=== PATIENT | female | born 1995 | race Caucasian/White ===

== ENCOUNTER 2017-04-03 15:03 | Outpatient (CLI) | payer BC, OTHER ==
[2017-04-03 15:43] LABS: BILIRUBIN,URINE NEGATIVE (NEGATIVE); PH,URINE 6.5 PH (5.0-7.5)
[2017-04-03 16:01] LABS: BASOPHILS # (AUTO) 0.1 10^3/uL (0.0-0.1); BASOPHILS % (AUTO) 0.7 %; EOSINOPHILS # (AUTO) 0.2 10^3/uL (0.0-0.7); EOSINOPHILS % (AUTO) 2.1 %; HCT - HEMATOCRIT 38.1 % (37.0-47.0); HGB - HEMOGLOBIN 13.3 g/dL (12.0-16.0); LYMPHOCYTES % (AUTO) 21.3 %; MEAN CORPUSCULAR HEMOGLOBIN 29.6 pg (27.0-31.0); MEAN CORPUSCULAR HGB CONC 34.9 g/dL (32.0-36.0); MEAN CORPUSCULAR VOLUME 84.8 fL (81.0-99.0); MONOCYTES # (AUTO) 0.6 10^3/uL (0.0-1.0); MONOCYTES % (AUTO) 6.2 %; NEUTROPHILS # (AUTO) 6.6 10^3/uL (1.5-6.6); NEUTROPHILS % (AUTO) 69.7 %; RED CELL DISTRIBUTION WIDTH 13.6 % (12.0-15.0); UNCORRECTED WHITE BLOOD COUNT 9.5 x10^3/uL; WHITE BLOOD COUNT 9.5 x10^3/uL (4.8-10.8)
[2017-04-03 16:11] LABS: WBC,URINE 0-3 /HPF (0-5)
[2017-04-04 06:23] LABS: TEST RESULT REPORT
== END 2017-04-03 15:04 | disposition home or self-care (01) ==
LOC: LAB 15:03
PROVIDERS: ATTEND Registered Nurse
DX: Z36.9 Encounter for antenatal screening, unspecified (principal)
CPT/HCPCS: 36415; 81001; 81599; 85025; 86762; 86850; 86900; 86901; 87340; 87389

== ENCOUNTER 2017-05-04 07:18 | Outpatient (CLI) | payer BC, OTHER ==
--- NOTE | 2017-05-07 13:38 | Ultrasound Report ---
OB ULTRASOUND: 05/04/2017 CLINICAL INDICATION: anatomy. TECHNIQUE: Real-time scanning was performed with premium representative static images obtained. LAST MENSTRUAL PERIOD: 12/04/2016 Clinical Age: 21 weeks 4 days US Age: 21 weeks 1 day EFW Hadlock: 416 EFW% Hadlock: 32% Heart Rate: 130 bpm EDC: 09/10/2017 US EDC: 09/13/2017 BPD Hadlock: 20 weeks 5 days; Mean mm 49 HC Hadlock: 20 weeks 6 days; Mean mm 186 AC Hadlock: 21 weeks 1 day; Mean mm 160 FL Hadlock: 21 weeks 6 days; Mean mm 37 Presentation: cephalic Placental Location: anterior Cervical Length: 4.1 cm Amniotic Fluid: 12.1 cm FINDINGS: There is a single viable intrauterine gestation, in cephalic presentation. heart rate is 130 BPM. The placenta is anterior without evidence of previa. Amniotic fluid volume is subjectively normal. By size, the fetus measures 21 weeks 1 day (21 weeks 4 days by LMP). ANATOMY: The following anatomic structures were visualized and appear normal: The intracranial contents, including the ventricles and posterior fossa; the lips and orbits; the spine; the heart, including 4 chamber view and outflow tracts, and diaphragm; the abdominal contents, including the stomach, the bilateral kidneys, and urinary bladder, as well as a normal 3 vessel cord insertion; 4 limbs. No free fluid or adnexal lesion is appreciated. IMPRESSION: SINGLE VIABLE INTRAUTERINE GESTATION, WITH SIZE IN KEEPING WITH LMP DATING. NORMAL ANATOMIC SURVEY. HENRY/ TD: 05/04/2017 16:27 [facility]
== END 2017-05-04 07:19 | disposition home or self-care (01) ==
LOC: DI 07:18
PROVIDERS: ATTEND Registered Nurse
DX: Z34.82 Encounter for supervision of other normal pregnancy, second trimester (principal); Z3A.21 21 weeks gestation of pregnancy
CPT/HCPCS: 76811

== ENCOUNTER 2017-06-23 08:44 | Outpatient (CLI) | payer BC, OTHER ==
[2017-06-23 12:35] LABS: HGB - HEMOGLOBIN 12.5 g/dL (12.0-16.0); MEAN CORPUSCULAR HGB CONC 34.4 g/dL (32.0-36.0); MEAN PLATELET VOLUME 8.6 fL (7.9-10.8); RED BLOOD COUNT 4.17 10^6/uL (4.20-5.40); RED CELL DISTRIBUTION WIDTH 13.5 % (12.0-15.0); WHITE BLOOD COUNT 11.9 x10^3/uL (4.8-10.8)
== END 2017-06-23 08:45 | disposition home or self-care (01) ==
LOC: LAB.WCP 08:44
PROVIDERS: ATTEND Nurse Practitioner Obstetrics & Gynecology
DX: Z34.90 Encounter for supervision of normal pregnancy, unspecified, unspecified trimester (principal)
CPT/HCPCS: 36415; 82950; 86850

== ENCOUNTER 2017-07-29 09:58 | Outpatient (CLI) | payer OTHER ==
[2017-07-29 11:21] LABS: BASOPHILS % (AUTO) 0.4 %; EOSINOPHILS # (AUTO) 0.2 10^3/uL (0.0-0.7); EOSINOPHILS % (AUTO) 1.7 %; HGB - HEMOGLOBIN 11.4 g/dL (12.0-16.0); LYMPHOCYTES # (AUTO) 1.8 10^3/uL (1.5-3.5); LYMPHOCYTES % (AUTO) 15.6 %; MEAN CORPUSCULAR HEMOGLOBIN 29.1 pg (27.0-31.0); MEAN CORPUSCULAR VOLUME 85.5 fL (81.0-99.0); MEAN PLATELET VOLUME 8.5 fL (7.9-10.8); MONOCYTES # (AUTO) 0.7 10^3/uL (0.0-1.0); MONOCYTES % (AUTO) 6.3 %; NEUTROPHILS # (AUTO) 8.8 10^3/uL (1.5-6.6); PLT - PLATELET COUNT 251 10^3/uL (130-450); RED BLOOD COUNT 3.92 10^6/uL (4.20-5.40); RED CELL DISTRIBUTION WIDTH 13.3 % (12.0-15.0); WHITE BLOOD COUNT 11.6 x10^3/uL (4.8-10.8)
[2017-07-29 11:22] LABS: URIC ACID 3.8 mg/dL (2.6-7.2)
[2017-07-29 11:32] LABS: ALBUMIN 2.9 g/dL (3.2-5.5); ALBUMIN/GLOBULIN RATIO 0.8 (1.0-2.2); BILIRUBIN,TOTAL 0.4 mg/dL (0.2-1.0); CALCIUM 8.6 mg/dL (8.5-10.3); CREATININE 0.5 mg/dL (0.4-1.0); TOTAL PROTEIN 6.4 g/dL (6.7-8.2)
[2017-07-29 12:22] LABS: CREATININE,URINE 31.4 mg/dL; TOTAL PROTEIN,URINE TIMED < 6 mg/dL
[2017-07-29 17:50] VITALS: BP 120/75
[2017-07-30 16:59] LABS: CREATININE,URINE 95.1 mg/dL; PROTEIN/CREATININE RATIO,URINE 0.1 (<=0.2)
== END 2017-07-29 13:40 | disposition home or self-care (01) ==
LOC: WFO 09:58 → FBP 09:59 → WFO 13:40
PROVIDERS: ATTEND Nurse Practitioner Obstetrics & Gynecology
DX: O13.3 Gestational [pregnancy-induced] hypertension without significant proteinuria, third trimester (principal); Z3A.32 32 weeks gestation of pregnancy
CPT/HCPCS: 36415; 59025; 80053; 82570; 83615; 84156; 84450; 84550; 85025

== ENCOUNTER 2017-07-31 15:54 | Outpatient (CLI) | payer OTHER ==
[2017-07-31 16:31] VITALS: BP 118/79
== END 2017-07-31 17:17 | disposition home or self-care (01) ==
LOC: WFO 15:54 → FBP 15:57 → WFO 17:17
PROVIDERS: ATTEND Registered Nurse
DX: O13.3 Gestational [pregnancy-induced] hypertension without significant proteinuria, third trimester (principal); Z3A.33 33 weeks gestation of pregnancy
CPT/HCPCS: 59025

== ENCOUNTER 2017-08-11 11:15 | Outpatient (CLI) | payer OTHER ==
[2017-08-11 12:00] LABS: PROTEIN/CREATININE RATIO,URINE 0.1 (<=0.2)
[2017-08-11 12:03] LABS: ALBUMIN 3.1 g/dL (3.2-5.5); ALBUMIN/GLOBULIN RATIO 0.9 (1.0-2.2); BILIRUBIN,TOTAL 0.4 mg/dL (0.2-1.0); CALCIUM 8.8 mg/dL (8.5-10.3); CREATININE 0.5 mg/dL (0.4-1.0); TOTAL PROTEIN 6.5 g/dL (6.7-8.2); URIC ACID 3.6 mg/dL (2.6-7.2)
== END 2017-08-11 11:16 | disposition home or self-care (01) ==
LOC: LAB 11:15
PROVIDERS: ATTEND Nurse Practitioner Obstetrics & Gynecology
DX: O13.3 Gestational [pregnancy-induced] hypertension without significant proteinuria, third trimester (principal)
CPT/HCPCS: 36415; 80053; 82570; 83615; 84156; 84550

== ENCOUNTER 2017-08-11 21:58 | Outpatient (CLI) | payer OTHER ==
--- NOTE | 2017-08-12 00:46 | Ultrasound Report ---
EXAM: BIOPHYSICAL PROFILE EXAM DATE: 08/11/2017 11:56 PM. CLINICAL HISTORY: Gestational hypertension. COMPARISON: None. TECHNIQUE: Real-time sonographic evaluation of the fetus performed by the manager restaurant. Multiple repre sentative static images were saved for review. DATING: Established EGA 35 weeks 2 days with HONG 09/13/2017. GENERAL EVALUATION Meraz . Cardiac activity: 146 bpm. movement: Visualized. Presentation: Cephalic. Placenta: Anterior position. No evidence for previa or abruption. Amniotic fluid: Normal. NINFA 15.5 cm. MVP 4.5 cm. BIOPHYSICAL PROFILE Breathing = 2 Movement = 2 Tone = 2 Amniotic Fluid = 2 Total 12/23 IMPRESSION: 1. Meraz live intrauterine with gestational age 35 weeks 2 days based on established ED D. 2. Biophysical profile score 8 of 8. EVELYN Referring Provider Line: [phone] SITE ID: [id number]
[2017-08-12 00:58] VITALS: BP 120/65
== END 2017-08-12 00:50 | disposition home or self-care (01) ==
LOC: WFO 21:58 → FBP 22:00 → WFO 08-12 00:50
PROVIDERS: ATTEND Nurse Practitioner Obstetrics & Gynecology
DX: O13.3 Gestational [pregnancy-induced] hypertension without significant proteinuria, third trimester (principal); Z3A.34 34 weeks gestation of pregnancy
CPT/HCPCS: 36415; 59025; 76816; 76819; 80053; 82570; 83615; 84156; 84550

== ENCOUNTER 2017-08-18 09:22 | Outpatient (CLI) | payer OTHER ==
[2017-08-18 10:07] VITALS: BP 131/81
== END 2017-08-18 10:15 | disposition home or self-care (01) ==
LOC: WFO 09:22 → FBP 09:25 → WFO 10:15
PROVIDERS: ATTEND Nurse Practitioner Obstetrics & Gynecology
DX: O13.3 Gestational [pregnancy-induced] hypertension without significant proteinuria, third trimester (principal); Z3A.35 35 weeks gestation of pregnancy; Z36.85 Encounter for antenatal screening for Streptococcus B
CPT/HCPCS: 59025; 87081

== ENCOUNTER 2017-08-18 14:41 | Outpatient (CLI) | payer OTHER | END 2017-08-18 14:42 | disposition home or self-care (01) | LOC: LAB.R 14:41 | PROVIDERS: ATTEND Nurse Practitioner Obstetrics & Gynecology | DX: Z36.85 Encounter for antenatal screening for Streptococcus B (principal) | CPT/HCPCS: 87081 ==

== ENCOUNTER 2017-08-20 11:39 | Outpatient (CLI) | payer OTHER ==
[2017-08-20 12:11] VITALS: BP 118/74
--- NOTE | 2017-08-20 16:08 | Ultrasound Report ---
BIOPHYSICAL PROFILE: 08/20/2017 HISTORY: Gestational hypertension with proteinuria. TECHNIQUE: Real-time scanning by the public relations professional with saved static images reviewed. FINDINGS: There is normal movement, tone, breathing, and amniotic fluid volume. IMPRESSION: BIOPHYSICAL PROFILE 12/23. TD: 08/20/2017 14:40
--- NOTE | 2017-08-20 16:24 | Ultrasound Report ---
OB FOLLOWUP ULTRASOUND: 08/20/2017 HISTORY: Assess growth. Hypertension. Proteinuria. TECHNIQUE: Real-time scanning was performed with food products sales representative static images obtained. FINDINGS LAST MENSTRUAL PERIOD 12/07/2016 Clinical Age 36 weeks 4 days US Age 35 weeks 4 days EFW Hadlock 2575 grams EFW% Hadlock 18% Heart Rate 130 bpm EDC 09/13/2017 US EDC 09/20/2017 BPD Hadlock 35 weeks 5 days; Mean mm 88 HC Hadlock 36 weeks 3 days; Mean mm 322 AC Hadlock 34 weeks 1 day; Mean mm 302 FL Hadlock 36 weeks 0 days; Mean mm 70 Presentation cephalic Placental Location anterior Cervical Length -- Amniotic Fluid NINFA 17.4 cm IMPRESSION: SINGLE INTRAUTERINE GESTATION. AGE BY COMPOSITE ULTRASOUND MEASUREMENTS TODAY 35 WEEKS 4 DAYS WITH EXPECTED AGE BY FIRST ULTRASOUND 36 WEEKS 4 DAYS. ESTIMATED WEIGHT 2575 GRAMS, 18TH PERCENTILE. ANTERIOR PLACENTA. CEPHALIC PRESENTATION. NORMAL NINFA. HEART RATE 130 BEATS PER MINUTE. TD: 08/20/2017 14:22 [facility]
== END 2017-08-20 12:25 | disposition home or self-care (01) ==
LOC: WFO 11:39 → FBP 11:41 → WFO 12:25 → FBP 12:25
PROVIDERS: ATTEND Nurse Practitioner Obstetrics & Gynecology
DX: O13.3 Gestational [pregnancy-induced] hypertension without significant proteinuria, third trimester (principal); Z3A.35 35 weeks gestation of pregnancy
CPT/HCPCS: 59025; 76816; 76819

== ENCOUNTER 2017-08-25 09:29 | Outpatient (CLI) | payer OTHER ==
[2017-08-25 10:52] VITALS: BP 124/80
== END 2017-08-25 10:32 | disposition home or self-care (01) ==
LOC: WFO 09:29 → FBP 09:36 → WFO 10:32
PROVIDERS: ATTEND Nurse Practitioner Obstetrics & Gynecology
DX: O13.3 Gestational [pregnancy-induced] hypertension without significant proteinuria, third trimester (principal); Z3A.36 36 weeks gestation of pregnancy
CPT/HCPCS: 36415; 59025; 80053; 82570; 83615; 84156; 84550

== ENCOUNTER 2017-08-25 11:47 | Outpatient (CLI) | payer OTHER ==
[2017-08-25 12:36] LABS: ALBUMIN/GLOBULIN RATIO 0.8 (1.0-2.2); BILIRUBIN,TOTAL 0.4 mg/dL (0.2-1.0); CALCIUM 8.8 mg/dL (8.5-10.3); CREATININE 0.5 mg/dL (0.4-1.0); TOTAL PROTEIN 6.8 g/dL (6.7-8.2); URIC ACID 4.1 mg/dL (2.6-7.2)
[2017-08-25 13:26] LABS: CREATININE,URINE 82.9 mg/dL; PROTEIN/CREATININE RATIO,URINE 0.1 (<=0.2)
== END 2017-08-25 11:48 | disposition home or self-care (01) ==
LOC: LAB 11:47
PROVIDERS: ATTEND Nurse Practitioner Obstetrics & Gynecology
DX: O13.3 Gestational [pregnancy-induced] hypertension without significant proteinuria, third trimester (principal)
CPT/HCPCS: 36415; 80053; 82570; 83615; 84156; 84550

== ENCOUNTER 2017-08-26 08:00 | Outpatient (CLI) | payer OTHER ==
[2017-08-26 16:53] LABS: TOTAL PROTEIN 24HR,URINE 120 mg/24hr (40-150); TOTAL PROTEIN,URINE TIMED 8 mg/dL; TOTAL VOLUME 24HRS,URINE 1500 mL
== END 2017-08-26 08:01 ==
LOC: LAB.R 08:00
PROVIDERS: ATTEND Nurse Practitioner Obstetrics & Gynecology
DX: O13.3 Gestational [pregnancy-induced] hypertension without significant proteinuria, third trimester (principal)
CPT/HCPCS: 84156

== ENCOUNTER 2017-08-27 09:29 | Outpatient (CLI) | payer OTHER ==
[2017-08-27 09:42] VITALS: BP 117/70
== END 2017-08-27 10:35 | disposition home or self-care (01) ==
LOC: WFO 09:29 → FBP 09:31 → WFO 10:35
PROVIDERS: ATTEND Registered Nurse
DX: O13.3 Gestational [pregnancy-induced] hypertension without significant proteinuria, third trimester (principal); Z3A.36 36 weeks gestation of pregnancy
CPT/HCPCS: 59025

== ENCOUNTER 2017-08-28 22:00 | Inpatient (IN) | payer OTHER ==
--- NOTE | 2017-08-28 22:51 | HISTORY & PHYSICAL EXAMINATION ---
Admit History - Instructions [place]/Slash: -Left hand click circles element as positive or present. -Right hand click slashes element as negative or not present. - Visit Reason Visit Reason: Other - : 1 Parity: 0 Premature: 0 Ectopic: 0 : 0 Care: positive: [facility] Risk/History: positive: None Complications This : positive: induced HTN Smoking Status: Never smoker - Mother's Labs Mother's Blood Type: positive: AB Mother's RH: positive: Positive GBS: positive: Group B Step Negative Rubella Status: positive: Immune - Other Maternal History Other Maternal History: HPI: This 21yo at 37.0wks gestation by L=9wk U/S phoned through the answering service with complaints of significantly blurred vision since 1999 this evening. She drank water and moved around hoping for it to go away but it persisted. At that time she took her BP which was 153/98. Reports consistently taking her 200mg labetalol bid and reports she had taken her evening dose 3 hours prior. She was instructed to present to [facility]. She reports continued blurred vision including blurred peripheral vision. She reports 2/10 headache. She denies RUQ pain or increased swelling. 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 to [place] who is currently deployed. Mother lives close by and provides excellent support. Meds: PNV, Labetalol 200 mg PO bid Allergies: NKDA Physical Exam: Heart RRR w/o M/G/R Lungs CTAB Abdomen gravid, soft, nontender FHT's baseline 135, moderate variability, + accels, no decels EFW 2700g DTRs 2+, neg clonus Early labs: Blood type AB pos, antibody neg Hgb 13.3; Hct 38.1; PLT 232 Rubella immune HIV non-reactive Hep B non-reactive RPR non-reactive 28 week labs: Hgb 12.5 1 hour GTT 98 GBS neg Tdap 06/25/2017 08/12/2017 PI[facility] labs: pro/cr ratio 0.1 LDH 139 Uric acid 3.8 AST 18; ALT 15 Hgb 11.4, PLT 251 08/25/17 [facility] Labs: Pro/cr ratio: 0.1 LDH 136 Uric acid 4.1 AST 20; ALT 18 24 hour urine protein 120 Ultrasounds 05/13/2017: Single IUP, size = dating. Normal FAS. Anterior placenta , no previa. 08/11/2017 BPP 12/2308/18/2016 BPP 12/2308/21/2017 Growth U/S: Size c/w dating. Normal NINFA-17.5. EFW 2570g 18th percentile Assessment: 21yo G1P) @ 37.0wks gestation by L=9wk U/S Gestational HTN with moderate range BPs increasing in severity despite increasing labetalol dose from 100mg PO bid, to 200mg PO bid 1 week ago. GBS neg Plan: UA for evaluation of proteinuria Serial BPs with manual cuff NST upon arrival Induction of labor with cervical ripening indicated for gestational HTN - patient consented and risks vs benefits reviewed. Continuous monitoring If patient develops severe range pressure, will initiate Mg protocol and transfer care to physicians. Consulted with Dr Cheng, attending physician who agrees with plan. Meds/Allgy - Home Medications Home Medications: Ambulatory Orders Medication Instructions Recorded Confirmed Control Pills 03/27/16 diphenhydrAMINE [Benadryl] 25 mg PO ONCE 03/27/16 03/27/16 predniSONE [Prednisone] 40 mg PO DAILY #10 tablet 03/27/16 - Allergies Allergies/Adverse Reactions: Allergies Allergy/AdvReac Type Severity Reaction Status Date / Time laundry detergant Allergy Rash Uncoded 03/27/16 07:37 Physical - Abdominal Exam Vital Signs: Temp Pulse Resp BP Pulse Ox 37.0 C 90 18 120/64 100 08/28/17 22:15 08/28/17 22:15 08/28/17 22:15 08/28/17 22:20 08/28/17 22:15
[2017-08-28 22:58] LABS: BILIRUBIN,URINE NEGATIVE (NEGATIVE); GLUCOSE, URINE (UA) NEGATIVE (NEGATIVE); KETONES,URINE (UA) TRACE mg/dL (NEGATIVE); LEUKOCYTE ESTERASE, URINE NEGATIVE (NEGATIVE); NITRITE,URINE NEGATIVE (NEGATIVE); OCCULT BLOOD,URINE NEGATIVE (NEGATIVE); PROTEIN,URINE NEGATIVE (NEGATIVE); UROBILINOGEN,URINE 0.2 (NORMAL) E.U./dL (NORMAL)
[2017-08-28 22:59] LABS: CLARITY,URINE CLEAR (CLEAR)
[2017-08-28 23:04] LABS: RBC,URINE 0-5 /HPF (0-5)
[2017-08-28 23:05] LABS: BACTERIA,URINE Few /HPF (None Seen); CRYSTALS,URINE 6-10 Calcium Oxalate /LPF; MUCUS,URINE Marked Strands; SQUAMOUS EPITHELIAL CELL,UR MOD Squamous (<= Few)
[2017-08-28] MEDS ORDERED: DINOPROSTONE 10 MG SUPP VG SCH (23:28)
[2017-08-28] MEDS ORDERED: ACETAMINOPHEN 500 MG TABLET PO PRN (23:28)
[2017-08-28] MEDS ORDERED: SODIUM CHLORIDE FLUSH 0.9% 10 ML SYRINGE IVP PRN (23:28)
[2017-08-28] MEDS ORDERED: ZOLPIDEM 5 MG TABLET PO PRN (23:37)
[2017-08-29] MEDS: SODIUM CHLORIDE FLUSH 0.9% 10 ML SYRINGE IVP SCH (00:25)
[2017-08-29 00:40] LABS: BASOPHILS % (AUTO) 0.3 %; EOSINOPHILS # (AUTO) 0.2 10^3/uL (0.0-0.7); EOSINOPHILS % (AUTO) 1.6 %; HGB - HEMOGLOBIN 11.8 g/dL (12.0-16.0); LYMPHOCYTES % (AUTO) 16.5 %; MEAN CORPUSCULAR HEMOGLOBIN 29.6 pg (27.0-31.0); MEAN CORPUSCULAR HGB CONC 34.8 g/dL (32.0-36.0); MEAN CORPUSCULAR VOLUME 84.9 fL (81.0-99.0); MEAN PLATELET VOLUME 8.8 fL (7.9-10.8); MONOCYTES # (AUTO) 0.8 10^3/uL (0.0-1.0); MONOCYTES % (AUTO) 6.5 %; NEUTROPHILS % (AUTO) 75.1 %; PLT - PLATELET COUNT 233 10^3/uL (130-450); RED BLOOD COUNT 3.98 10^6/uL (4.20-5.40); RED CELL DISTRIBUTION WIDTH 13.8 % (12.0-15.0)
[2017-08-29] MEDS: LABETALOL 100 MG TABLET PO SCH ×2 (10:00→22:07)
--- NOTE | 2017-08-29 11:38 | PROVIDER PROGRESS NOTE ---
Subjective - Subjective Subjective: S: Patient doing well this morning. States she was able to get a good night's sleep. She is sitting up in the chair with her mom and friend whom are providing her with good support. She states she is starting to feel the cramping associated with abdominal tightening with the contractions appreciated on the toco. In good spirits. O: BP has remained normotensive throughout the night. Received 200mg PO labetalol dose this morning as scheduled. Will defer SVE until 1230 with cervadil is due to be removed. Contractions palpate mild every 4-5 minutes lasting 40-60 seconds. FHR baseline 130, moderate variability, + accels, no decels. A: 21yo @ 37.1wks gestation Gestational HTN GBS neg P: Continue induction of labor with cervical ripening Repeat SVE 1230 after removal of cervadil Anticipate continued cervical ripening with misoprostol q 4 hours Considering erickson bulb for cervical ripening Plan to update dr. salazar, attending physician on patient status following SVE and plan. Anticipate admission in <48 hours followed by spontaneous vaginal delivery Objective - Lab Results Fish Bones: 08/28/17 00:25 Other Labs: Lab Results x24hrs 08/28/17 08/28/17 Range/Units 22:15 00:25 WBC 12.0 H (4.8-10.8) x10^3/uL RBC 3.98 L (4.20-5.40) 10^6/uL Hgb 11.8 L (12.0-16.0) g/dL Hct 33.8 L (37.0-47.0) % MCV 84.9 (81.0-99.0) fL MCH 29.6 (27.0-31.0) pg MCHC 34.8 (32.0-36.0) g/dL RDW 13.8 (12.0-15.0) % Plt Count 233 (130-450) 10^3/uL MPV 8.8 (7.9-10.8) fL Neut # 9.0 H (1.5-6.6) 10^3/uL Lymph # 2.0 (1.5-3.5) 10^3/uL [place] # 0.8 (0.0-1.0) 10^3/uL Eos # 0.2 (0.0-0.7) 10^3/uL Baso # 0.0 (0.0-0.1) 10^3/uL Absolute Nucleated RBC 0.01 x10^3/uL Nucleated RBC % 0.0 /100WBC Urine Color YELLOW Urine Clarity CLEAR (CLEAR) Urine pH 6.0 (5.0-7.5) PH Ur Specific [place] >=1.030 H (1.002-1.030) Urine Protein NEGATIVE (NEGATIVE) mg/dL Urine Glucose (UA) NEGATIVE (NEGATIVE) mg/dL Urine Ketones TRACE (NEGATIVE) mg/dL Urine Occult Blood NEGATIVE (NEGATIVE) Urine Nitrite NEGATIVE (NEGATIVE) Urine Bilirubin NEGATIVE (NEGATIVE) Urine Urobilinogen 0.2 (NORMAL) (NORMAL) E.U./dL Ur Leukocyte Esterase NEGATIVE (NEGATIVE) Urine RBC 0-5 (0-5) /HPF Urine WBC 0-3 (0-5) /HPF Ur Squamous Epith Cells MOD Squamous H (<= Few) Urine Crystals 6-10 Calcium Oxalate /LPF Urine Bacteria Few (None Seen) /HPF Urine Mucus Marked Strands Urine Culture Comments NOT INDICATED
--- NOTE | 2017-08-29 12:43 | PROVIDER PROGRESS NOTE ---
Subjective - Subjective Subjective: S: Feeling well. Mom and friend supportive at the bedside. In good spirits. O: Normotensive. Afebrile. SVE 2-3/50/-2, vertex, mid-position, medium consistency. FHR baseline 130s, moderate variability, +accels, no decels. Contractions palpate mild every 4-5 minutes. A: 21yo @ 37.1wks gestation IOL with cervical ripening secondary to Gestational HTN GBS neg P: Cytotec 25mg q 4hrs x minimum of 2 doses continuous monitoring Serial BP monitoring Repeat SVE in 8 hours or sooner PRN. Anticipate inpatient status in less than [address] Cheng notified of patient status and agrees with plan of care. Objective - Lab Results Fish Bones: 08/28/17 00:25 Other Labs: Lab Results x24hrs 08/28/17 08/28/17 Range/Units 22:15 00:25 WBC 12.0 H (4.8-10.8) x10^3/uL RBC 3.98 L (4.20-5.40) 10^6/uL Hgb 11.8 L (12.0-16.0) g/dL Hct 33.8 L (37.0-47.0) % MCV 84.9 (81.0-99.0) fL MCH 29.6 (27.0-31.0) pg MCHC 34.8 (32.0-36.0) g/dL RDW 13.8 (12.0-15.0) % Plt Count 233 (130-450) 10^3/uL MPV 8.8 (7.9-10.8) fL Neut # 9.0 H (1.5-6.6) 10^3/uL Lymph # 2.0 (1.5-3.5) 10^3/uL [place] # 0.8 (0.0-1.0) 10^3/uL Eos # 0.2 (0.0-0.7) 10^3/uL Baso # 0.0 (0.0-0.1) 10^3/uL Absolute Nucleated RBC 0.01 x10^3/uL Nucleated RBC % 0.0 /100WBC Urine Color YELLOW Urine Clarity CLEAR (CLEAR) Urine pH 6.0 (5.0-7.5) PH Ur Specific [place] >=1.030 H (1.002-1.030) Urine Protein NEGATIVE (NEGATIVE) mg/dL Urine Glucose (UA) NEGATIVE (NEGATIVE) mg/dL Urine Ketones TRACE (NEGATIVE) mg/dL Urine Occult Blood NEGATIVE (NEGATIVE) Urine Nitrite NEGATIVE (NEGATIVE) Urine Bilirubin NEGATIVE (NEGATIVE) Urine Urobilinogen 0.2 (NORMAL) (NORMAL) E.U./dL Ur Leukocyte Esterase NEGATIVE (NEGATIVE) Urine RBC 0-5 (0-5) /HPF Urine WBC 0-3 (0-5) /HPF Ur Squamous Epith Cells MOD Squamous H (<= Few) Urine Crystals 6-10 Calcium Oxalate /LPF Urine Bacteria Few (None Seen) /HPF Urine Mucus Marked Strands Urine Culture Comments NOT INDICATED
[2017-08-29] MEDS: miSOPROStol 100 MCG TABLET BC SCH ×3 (13:54→22:07)
--- NOTE | 2017-08-29 20:30 | CONSULTATION NOTE ---
DATE OF SERVICE: 08/29/2017 Physician: Nona Cheng DO IDENTIFICATION: A 21-year-old G1, P0, with a 37-1/7 week intrauterine . EDC is 09/18/2017, changed by 9-week ultrasound. 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 Patient has had a normal up until about 07/29/2017 at 32 weeks 5 days. At that point in time, patient started having new onset gestational hypertension with blood pressures in the 140s-150s and a diastolic in the 100s. Patient had a workup for preeclampsia, which was negative. Patient was then placed on labetalol and has been most recently increasing labetalol. Most recently, patient was increased to labetalol 200 mg 1 tab p.o. b.i.d. Last night, the patient called, stating that she was having symptoms of preeclampsia, including blurred vision. A home blood pressure was 153/98. I discussed patient's case with Tasha. I agreed with Tasha that it is in patient's best interest that we proceed to delivery, given that she is 37 weeks on labetalol and her blood pressure is not under control. The patient does not make criteria for pre-eclampsia. Her cervical examination was remote from delivery. I do agree with Tasha's plan to proceed with cervical ripening with Cervidil and then with Cytotec. Should patient's clinical situation deteriorate , the obstetricians would be more than happy to take over care or continue consultation with the midwifery service. PAST MEDICAL HISTORY: None. PAST SURGICAL HISTORY: None. ALLERGIES: NO KNOWN DRUG ALLERGIES. MEDICATIONS 1. vitamins. 2. Labetalol 200 mg 1 tablet p.o. b.i.d. SOCIAL HISTORY: She denies any tobacco, alcohol or illicit drug use. Patient is to Pelon who is in the [employer] and on deployment. This is a male fetus with anticipated name of Miguel. Patient does intend to breastfeed and desires to go natural with respect to her pain management. PAST OBSTETRICAL HISTORY, CURRENT: Patient has been getting consistent care since 9 weeks' gestation. Again, this has been remarkable for new onset hypertension at 32 weeks' gestation. She has been placed on labetalol. Her preeclampsia labs are within normal limits and proteinuria has not made criteria for preeclampsia. PAST GYNECOLOGICAL HISTORY: She denies any abnormal Pap smears or sexually transmitted diseases. FAMILY HISTORY: She denies any female carcinoma. REVIEW OF SYSTEMS: Negative, unless otherwise stated. She denies any nausea, vomiting, fevers or chills. She does state the baby is moving well and is having mild contractions at this point in time. PHYSICAL EXAMINATION VITAL SIGNS: Temperature is 98.6, heart rate 90, blood pressure 117/69 and 120/ 64. GENERAL: Patient is a well-developed, well-nourished female in no apparent distress. She is alert and oriented x3. ABDOMEN: Gravid. Currently, heart tone baseline is in the 130s and 140s. There is good long-term variability in this category 1 strip. There are no decelerations. Saxton shows she is ismael irregularly about every 2-5 minutes. Cervical examination currently deferred. On 08/28/2017, labs reveal a white count of 12.0, H and H of 11.8 and 33.8, platelet count 233. Urinalysis significant only for a specific gravity of greater than or equal to 1.030. There is no proteinuria. The 08/25/2017 labs reveal potassium 3.6, creatinine 0.5, glucose 115, uric acid 4.1, AST 20, ALT 18. The 24-hour urine collection is 120 mg per 24-hour period. Urine protein to creatinine ratio 0.1. laboratories reveal that she is chlamydia and gonorrhea negative. Hepatitis B surface antigen is nonreactive, as well as HIV. She is rubella immune. GBS is negative. RPR nonreactive. AB positive. Antibody screen is negative. One-hour GTT is 98. ASSESSMENT AND PLAN 1. A 21-year-old G1, P0, with a 37-1/7 week intrauterine . 2. Worsening gestational hypertension, currently on labetalol 200 mg 1 tab p.o. b.i.d. 3. Cervix remote from delivery. 4. Reassuring and maternal status. PLAN 1. Will continue consultation with Tasha. Should the patient's clinical course deteriorate, will be happy to take over care. 2. Recommend continued surveillance of preeclampsia. 3. Agree with induction of labor at this time. 4. Recommend continuation of labetalol 200 mg 1 tab p.o. b.i.d. TD: 08/29/2017 20:29 [facility]
--- NOTE | 2017-08-29 21:09 | PROVIDER PROGRESS NOTE ---
Subjective - Subjective Subjective: S: Sitting up in chair chatting with mom and company. She is feeling cramping and abdominal tightening with contractions. In good spirits. Well supported. Feels that she will be able to sleep well tonight. O: SVE 3/50/-1, vertex, midposition, medium consistency. BOW intact. Contractions palpate mild every 3-4 minutes lasting 40-60 seconds with soft resting tone. FHR baseline 150s + accels, no decels. Remains normotensive. Received night time dose of labetalol. A: 21yo at 37.1wks gestation Inductions of labor with cervical ripening secondary to gestational HTN GBS neg Normotensive, afebrile P: Continue 25 mcg buccal cytotec q 4 hours Continuous monitoring Serial BP monitoring. Anticipate admission within 24 hours with active labor. Objective - Vital Signs/Intake & Output Intake & Output: Intake & Output 08/26/17 08/27/17 08/28/17 08/29/17 23:59 23:59 23:59 23:59 Intake Total 830 Output Total 2 Balance 828 - Lab Results Fish Bones: 08/28/17 00:25 Other Labs: Lab Results x24hrs 08/28/17 08/28/17 Range/Units 22:15 00:25 WBC 12.0 H (4.8-10.8) x10^3/uL RBC 3.98 L (4.20-5.40) 10^6/uL Hgb 11.8 L (12.0-16.0) g/dL Hct 33.8 L (37.0-47.0) % MCV 84.9 (81.0-99.0) fL MCH 29.6 (27.0-31.0) pg MCHC 34.8 (32.0-36.0) g/dL RDW 13.8 (12.0-15.0) % Plt Count 233 (130-450) 10^3/uL MPV 8.8 (7.9-10.8) fL Neut # 9.0 H (1.5-6.6) 10^3/uL Lymph # 2.0 (1.5-3.5) 10^3/uL [place] # 0.8 (0.0-1.0) 10^3/uL Eos # 0.2 (0.0-0.7) 10^3/uL Baso # 0.0 (0.0-0.1) 10^3/uL Absolute Nucleated RBC 0.01 x10^3/uL Nucleated RBC % 0.0 /100WBC Urine Color YELLOW Urine Clarity CLEAR (CLEAR) Urine pH 6.0 (5.0-7.5) PH Ur Specific [place] >=1.030 H (1.002-1.030) Urine Protein NEGATIVE (NEGATIVE) mg/dL Urine Glucose (UA) NEGATIVE (NEGATIVE) mg/dL Urine Ketones TRACE (NEGATIVE) mg/dL Urine Occult Blood NEGATIVE (NEGATIVE) Urine Nitrite NEGATIVE (NEGATIVE) Urine Bilirubin NEGATIVE (NEGATIVE) Urine Urobilinogen 0.2 (NORMAL) (NORMAL) E.U./dL Ur Leukocyte Esterase NEGATIVE (NEGATIVE) Urine RBC 0-5 (0-5) /HPF Urine WBC 0-3 (0-5) /HPF Ur Squamous Epith Cells MOD Squamous H (<= Few) Urine Crystals 6-10 Calcium Oxalate /LPF Urine Bacteria Few (None Seen) /HPF Urine Mucus Marked Strands Urine Culture Comments NOT INDICATED
[2017-08-30] MEDS: miSOPROStol 100 MCG TABLET BC SCH (01:50)
[2017-08-30] MEDS ORDERED: LACTATED RINGERS 1,000 ML IV ONE (02:37)
[2017-08-30] MEDS ORDERED: LACTATED RINGERS 1,000 ML IV SCH (03:00)
[2017-08-30] MEDS: LABETALOL 100 MG TABLET PO SCH ×2 (08:35→21:50)
--- NOTE | 2017-08-30 12:06 | PROVIDER PROGRESS NOTE ---
Subjective - Subjective Subjective: S: Sitting comfortably in the chair. Slept okay last night but was awake more than previous nights because she was slightly uncomfortable due to contractions. Mom and sister supportive at the bedside. O: Normotensive. SVE 3/75/0, midposition, soft, vertex. SROM moderate amount of clear fluid. Contractions palpate moderate every 2 minutes lasting 60 seconds with soft resting tone. FHR baseline 140, + accels, occasional variable decelerations. A: 21yo @ 37.2wks gestation Gestational HTN with cervical ripening GBS neg P: Continue active management. Allow 2 hours with continuous monitoring and then consider 1 dose of cytotec 25mg buccally vs initiating pitocin protocol. Pt in agreement with plan and denies further questions or concerns. Objective - Vital Signs/Intake & Output Intake & Output: Intake & Output 08/27/17 08/28/17 08/29/17 08/30/17 23:59 23:59 23:59 23:59 Intake Total 1310 1140 Output Total 2 750 Balance 1308 390 - Lab Results Fish Bones: 08/28/17 00:25
[2017-08-30] MEDS ORDERED: fentaNYL 100 MCG/2 ML VIAL IVP PRN (12:36)
--- NOTE | 2017-08-30 16:43 | PROVIDER PROGRESS NOTE ---
Labor Progress Note - Uterine Monitoring Uterine Monitoring Mode: positive: External toco Contraction Frequency (min/apart): 3-5 Contraction Intensity: positive: Moderate to strong Uterine Resting Tone: positive: Soft - Monitoring Monitor Mode: positive: External ultrasound Heart Rate Baseline: 130 Heart Rate Variability: positive: Moderate (6-25 bmp) Accelerations: positive: Present, 15x15 Decelerations: positive: None - Vaginal Exam Dilation (in cm): 5 Effacement (%): 100 Station: 0 Cervical Position: Midposition - Labor Progress Note Labor Progress Note/Additional Text: S: Feeling more discomfort with contractions. Noting some lower pelvic pressure. Sitting up at the bedside with mom and sister for support. Coping well with contractions and desires to get into the jacuzzi. O: Normotensive. Afebrile. SVE 5/100/0, soft, stretchy, mid-position. FHR baseline 130s, + accels, no decels. Contractions palpate moderate every 3-5 minutes. A: 21yo at 37.2wks gestation Induction of labor secondary to gestational HTN AROM x 4.5 hours P: Continue with expectant management at this time. Intermittent monitoring. Encouraged position changes.
[2017-08-30] MEDS: SODIUM CHLORIDE FLUSH 0.9% 10 ML SYRINGE IVP SCH (18:11)
[2017-08-30] MEDS ORDERED: LIDOCAINE 1% 50 ML MDV ONE (18:43)
[2017-08-30] MEDS ORDERED: OXYTOCIN/SODIUM CHLORIDE 500 ML IV ONE (18:44)
[2017-08-30] MEDS ORDERED: miSOPROStol 100 MCG TABLET ONE (19:22)
[2017-08-30] MEDS ORDERED: miSOPROStol 200 MCG TABLET ONE (19:23)
--- NOTE | 2017-08-30 19:50 | DELIVERY NOTE ---
Delivery Note - Labor Labor: positive: Augmented by ARM, Other - Delivery Method Delivery Method: positive: Spontaneous vaginal delivery - Presentation Presentation: positive: Vertex, KASHMIR - left occiput anterior - Nuchal Cord Nuchal Cord: positive: None - Amniotic Fluid Description Amniotic Fluid Description: positive: Clear - Episiotomy Type Episiotomy Type: positive: None - Laceration Laceration: positive: Labial, Perineal - Suture Suture Type: positive: Vicryl Suture Size: positive: 3-0, 4-0 - Delivery Outcome Delivery Outcome: positive: Livebirth - : positive: Placed in direct skin contact with mother, Stimulated, Warmed , [place] used [place] sex: positive: Male - Cord Cord: positive: 3 vessels - Placenta Placenta: positive: Intact, Spontaneous - Estimated Blood Loss Estimated Blood Loss (in cc): 450 - Post Delivery Events Post Delivery Events: positive: No post delivery events - Delivery Comments (Free Text/Narrative) Delivery Comments (Free Text/Narrative): Labor: THis 21yo at 37.2wks gestation presented for induction of labor on 08/28/2017 secondary to gestational hypertension despite increased dosage of labetalol to 200mg PO bid x 2 weeks. She c/o blurred vision and LANE. She was given 1 dose of cervadil in place for 12 hours followed by 25mcg misprostol q 4 hours x 4. AROM occurred at 1135 on 08/30/2017 and was noted to be a moderate amount of clear fluid. She progressed to c/c/+1 and pushing at 1838. : Normal SVB of a viable male infant. No nuchal. 's 9/9 at 1 and 5 min respectively at 1910 on 08/30/2017. The was placed on maternal abdomen, stimulated, dried and placed skin to skin. The umbilical cord was allowed to stop pulsating after which time it was doubly clamped and cut by mom of patient. Cord blood was obtained. Placenta delivered spontaneously and intact at 1915. 3VC. Pitocin was administered via IV for hemostasis. EBL 450. Uterine fundus firm and there is no excessive bleeding. The perineum, vagina, and cervix were inspected and noted to have a left labial laceration which was repaired with 4-0 vicryl on an SH needle, in addition to a mild superficial laceration at the introitus which was repaired using a 3-[address]-1 needle in usual fashion under sterile conditions. Vaginal examination following the repair was done. Tissues well approximated. Family bonding well. Both mother and baby were left in stable condition.
[2017-08-30] MEDS ORDERED: HYDROCORTISONE/PRAMOXINE 10 GM PR PRN (21:11)
[2017-08-30] MEDS ORDERED: OXYTOCIN/SODIUM CHLORIDE 250 ML IV ONE (21:11)
[2017-08-30] MEDS ORDERED: WITCH HAZEL/GLYCERIN 1 EACH MED..PAD TOP PRN (21:11)
[2017-08-30] MEDS: IBUPROFEN 800 MG TABLET PO SCH (21:50)
[2017-08-30] MEDS: DOCUSATE SODIUM 100 MG CAPSULE PO SCH (21:50)
[2017-08-31] MEDS: IBUPROFEN 800 MG TABLET PO SCH ×4 (04:07→22:42)
--- NOTE | 2017-08-31 08:29 | PROVIDER PROGRESS NOTE ---
Subjective - Subjective Subjective: S: Bonding well with baby. with little difficulty. Baby sleepy at the breast. Has been hand expressing with success. She was able to get good sleep between feedings last night. Bleeding has decreased significantly. Reports mild cramping intermittently. Pain well controlled with ibuprofen and tylenol. Perineum comfortable. O: Has remained normotensive throughout the night. Heart RRR w/o M/G/R. Lungs CTAB. Abdomen soft and nontender with fundus firm at U. Bilateral LEs no edema. A: 21yo -->P1 s/p TSVD of viable male infant at 37.2wks gestation following induction of labor secondary to gestational HTN Normotensive on 200mg PO labetalol bid P: Continue routine care and meds. Patient denies further questions or concerns at this time. Objective - Vital Signs/Intake & Output Vital Signs: Vital Signs x48h Temp Pulse Resp BP BP Pulse Ox 08/31/17 07:45 36.8 C 66 16 109/64 98 08/31/17 04:02 36.6 C 78 16 110/67 100 08/31/17 00:45 36.9 C 103 H 16 115/59 L 96 Intake & Output: Intake & Output 08/28/17 08/29/17 08/30/17 08/31/17 23:59 23:59 23:59 23:59 Intake Total 1310 2640 100 Output Total 2 0 Balance 1308 590 100 - Lab Results Fish Bones: 08/28/17 00:25
[2017-08-31] MEDS: DOCUSATE SODIUM 100 MG CAPSULE PO SCH ×2 (08:43→21:09)
[2017-08-31] MEDS: LABETALOL 100 MG TABLET PO SCH ×2 (08:43→21:09)
[2017-09-01] MEDS: LABETALOL 100 MG TABLET PO SCH ×2 (07:48→21:45)
[2017-09-01] MEDS: IBUPROFEN 800 MG TABLET PO SCH ×4 (07:48→23:01)
[2017-09-01] MEDS: DOCUSATE SODIUM 100 MG CAPSULE PO SCH ×3 (07:48→23:01)
--- NOTE | 2017-09-01 08:16 | Discharge Plan ---
Discharge Plan Disposition: 01 Home, Self Care Condition: Good Diet: Regular Activity Restrictions: pelvic rest x6 weeks Shower Restrictions: No Driving Restrictions: No Weight Bearing: Full Weight Instruction Topics: Vaginal After, Breastfeed How To, Jaundice Signs Inf , Exercises Kegel Additional Instructions or Follow Up instructions: w/ Claudine Peck CNM/ANTONIO for x1 week, with Tasha May CNM/ ANTONIO x3 weeks, with STEPAN Beckman x8 weeks No Smoking: If you smoke, Please STOP! Call for help. Follow-up with: Willis Au ARNP [Primary Care Provider] - Tasha May CNM, ARNP [Provider Admit Priv/Credential] -
--- NOTE | 2017-09-01 08:32 | DISCHARGE SUMMARY ---
"Discharge Summary Admit Date: 08/28/17 Discharge Date: 09/01/17 Discharging Provider: JAKOB Code Status: Attempt Resuscitation Condition at Discharge: Good Discharge Disposition: 01 Home, Self Care Discharge Facility Name: [facility] - DIAGNOSES Admission Diagnoses: GESTATIONAL HYPERTENSION Discharge Diagnoses with Status of Each Condition: - HPI History of Present Illness: CORA BAJWA IS A 21 Y/O WHO WAS ADMITTED FOR PREINDUCTION CERVICAL RIPENING FOR GESTATIONAL HTN @ 37 WEEKS' GESTATION. SHE RECEIVED AN OVERNIGHT DOSE OF VAGINAL CERVIDIL FOLLOWED BY BUCCAL MISOPROSTOL FOR EFFECTIVE CERVICAL RIPENING & UNDERWENT AROM FOR CAF. SHE PROGRESSED READILY TO COMPLETE DILATATION & DELIVERED A VIABLE MALE VAGINALLY W/ AN INTACT PERINEUM & NO COMPLICATIONS - CONSULTS | PROCEDURES Procedures: PREINDUCTION CERVICAL RIPENING AROM - HOSPITAL COURSE Hospital Course: , CORA IS AMBULATING & VOIDING W/O DIFFICULTY. SHE IS PASSING FLATUS & TOLERATING A REGULAR DIET. HER PAIN IS WELL-CONTROLLED W/O OPIOID ANALGESIA & SHE REPORTS MINIMAL LOCHIA RUBRA. SHE IS W/ FORMULA SUPPLEMENTATION PER THE PROGRAM SUPPORT SPECIALIST & IS UTILIZING A NIPPLE SHIELD BECAUSE SHE HAD THE IMPRESSION THAT HER NIPPLES WERE FLAT. SHE IS INTENDING TO D/C THE NIPPLE SHIELD & ATTEMPT TO GET BABY TO LATCH DIRECTLY TO HER BREASTS. SHE IS PLANNING PP DEPO PROVERA IN FEBRUARY FOR CONTRACEPTION & INTENDS 3 MONTHS OF PP LEAVE. HER MOTHER IS AVAILABLE TO ASSIST HER W/ THE . SHE IS ABLE TO FULLY ARTICULATE PP WARNING S/SX, INCLUDING PP DEPRESSION S/SX, AND PP AFTERCARE INSTRUCTIONS. SHE DENIES LANE/VISION CHANGES/ABDOMINAL PAIN. SHE IS AWARE OF PET S/SX & WILL CONTINUE ON 100MG LABETALOL PO BID & RETURN FOR BP CHECK THIS WEEK. SHE IS READY TO LEAVE THE HOSPITAL. - ALLERGIES Allergies/Adverse Reactions: Allergies Allergy/AdvReac Type Severity Reaction Status Date / Time laundry detergant Allergy Rash Uncoded 03/27/16 07:37 - MEDICATIONS Home Medications: Ambulatory Orders Medication Instructions Recorded Confirmed Labetalol [Trandate] 100 mg PO BID tablet 09/01/17 - PHYSICAL EXAM AT DISCHARGE General Appearance: positive: No acute distress, Alert Eyes Bilateral: positive: Normal inspection, PERRL, EOMI Respiratory: positive: Chest non-tender, No respiratory distress, Breath sounds nml Cardiovascular: positive: Regular rate & rhythm, No murmur, No gallop Abdomen: positive: Non-tender, No distention, Other (FFU-2) Skin: positive: Color nml, No rash, Warm, Dry Extremities: positive: Non-tender, Full ROM, Nml appearance, No pedal edema. negative: Calf tenderness Neurologic/Psychiatric: positive: Oriented x3, CN's nml (2-12), Motor nml, Sensation nml, Mood/affect nml Physical Exam Other/Comments: BREASTS B/L S, NT; NIPPLES B/L INTACT & EVERTED, COLOSTRUM READILY EXPRESSIBLE PERINEUM INTACT W/O ERYTHEMA/EDEMA/ECCHYMOSIS; MINIMAL LOCHIA RUBRA - LABS Result Diagrams: 08/28/17 00:25 - FOLLOW UP Follow Up: BRANDEN DE LA TORRE CNM THIS WEEK FOR BP CHECK, X1 WEEK FOR , X3 WEEKS FOR PP VISIT, X8 WEEKS FOR ANNUAL EXAM - TIME SPENT Time Spent in Discharge (Minutes): 30"
[2017-09-01 23:06] VITALS: BP 129/74
--- NOTE | 2017-09-01 23:26 | Labor Flowsheet ---
Labor Flowsheet Datetime Report Generated by CPN: 09/01/2017 23:26 Datetime: 09/01/2017 23:06 VITAL SIGNS NBP Sys/Jannet/Mean (mmHg): 129 : 74 : 86 Pulse: 77 LaborFlag: Labor Datetime: 09/01/2017 11:44 SpO2 (%): 100 Datetime: 08/30/2017 19:10 UTERINE ACTIVITY Monitor Mode: External Frequency (min): 2-4 Quality: Strong Duration (sec): 60 Pattern: Normal: <= 5 Contractions in 10 Minutes Resting Tone (Palpate): Relaxed FHR Baseline Rate : 125 Comments: FHR 125. decels downs into the 90s after pushing. tracing lost while pushing. ino roberts at bedside, pt pushing effectively Oxygen Amount (LPM): 10 Oxygen Method: Non-Rebreather Datetime: 08/30/2017 18:57 Pushing Position: Pushing Lithotomy Pushing Progress: Descent with Pushing Datetime: 08/30/2017 18:53 STAGE 2 Pushing: Urge to Push Datetime: 08/30/2017 18:51 COMMUNICATION Communication: Provider at Bedside Communication Comments: ino roberts cnm Datetime: 08/30/2017 18:44 Monitor Interventions for FHR: Ultrasound Adjusted Datetime: 08/30/2017 18:35 Vaginal Bleeding: Normal Show Cervix, Consistency: Soft Cervix, Position: Anterior Datetime: 08/30/2017 18:30 ASSESSMENT A Monitor Mode: External US Variability: Moderate 6-25 bpm Accelerations: 15X15 Decelerations: Variable Category: Category II VAGINAL EXAM Dilatation (cm): 10.0 Effacement (%): 100 Station: 1 Datetime: 08/30/2017 18:17 MEDICATIONS Analgesics/Sedatives: Fentanyl (mcg) @ 50 Patient Position/Activity: Right Lateral Datetime: 08/30/2017 17:54 Medication Comments: pt requesting pain medications. will plan on giving medications when pt is in bed. Datetime: 08/30/2017 17:02 Patient Care Comments: In jacuzzi tub Datetime: 08/30/2017 16:35 Exam by: ino alejandra cnm Membrane Status: Ruptured Datetime: 08/30/2017 16:14 PAIN Pain Scale: 6 Pain Assessment Comments: pt tearful. education given. ino alejandra called into evaulate Datetime: 08/30/2017 15:52 Stage of : Labor Datetime: 08/30/2017 15:47 Temperature (C): 37.0 Datetime: 08/30/2017 15:17 Comfort Measures: Rocking Chair Datetime: 08/30/2017 14:40 Respirations: 17 Temperature Route: Oral Datetime: 08/30/2017 13:39 I/O Interventions: Up to BR Datetime: 08/30/2017 13:05 Contraction Comments: up sitting in chair Datetime: 08/30/2017 12:17 Hygiene: Tonya Care; Underpad Changed; Peripad Changed; Gown Changed; Linens Changed Datetime: 08/30/2017 12:01 Monitor Interventions for UA: Winnie Adjusted Datetime: 08/30/2017 11:36 Membranes Rupture Method: Artificial Amniotic Fluid Color: Clear Amniotic Fluid Amount: Large Datetime: 08/30/2017 10:02 Pain Presence: Intermittent Pain Type: Contraction Datetime: 08/30/2017 09:15 FHR Baseline Changes: No Baseline Change Datetime: 08/30/2017 02:48 PATIENT CARE IV/Blood Work: IV Infusing per Order; New IV Bag Hung; IV Bag Number @ 1 Datetime: 08/30/2017 01:54 Cervical Ripening Agents: Cytotec @ 25 Datetime: 08/29/2017 23:48 Pain Location: Abdomen Pain Relief Measures: Comfort Measures Pain Coping: Breathing Through Contractions; Declines Medication or Epidural Datetime: 08/29/2017 19:27 Vital Sign Comments: 124/80 bp check with manual cuff Datetime: 08/29/2017 12:30 Presentation 'A': Cephalic Vaginal Exam Comments: cytotec removed
== END 2017-09-01 23:11 | disposition home or self-care (01) | DRG 775 ==
LOC: WFO 22:00 → FBP 22:01 → WFO 23:27 → FBP 23:28 → OBSVTOIN 08-30 12:10
PROVIDERS: ADMIT Nurse Practitioner Obstetrics & Gynecology; ATTEND Registered Nurse
PROC: 3E0P7VZ Introduction of Hormone into Female Reproductive, Via Natural or Artificial Opening (ICD-10-PCS; 2017-08-28)
PROC: 10E0XZZ Delivery of Products of Conception, External Approach (ICD-10-PCS; principal; 2017-08-30)
PROC: 10907ZC Drainage of Amniotic Fluid, Therapeutic from Products of Conception, Via Natural or Artificial Opening (ICD-10-PCS; 2017-08-30)
PROC: 0HQ9XZZ Repair Perineum Skin, External Approach (ICD-10-PCS; 2017-08-30)
DX: O13.4 Gestational [pregnancy-induced] hypertension without significant proteinuria, complicating childbirth (principal); O70.0 First degree perineal laceration during delivery; O76 Abnormality in fetal heart rate and rhythm complicating labor and delivery; Z37.0 Single live birth; Z3A.37 37 weeks gestation of pregnancy; Z79.899 Other long term (current) drug therapy
CPT/HCPCS: 59200; 81001; 85025; 87086; 96360; 96361; 99212

== ENCOUNTER 2017-09-07 15:24 | Outpatient (CLI) | payer OTHER ==
[2017-09-07 15:47] LABS: HGB - HEMOGLOBIN 10.4 g/dL (12.0-16.0); MEAN CORPUSCULAR HGB CONC 33.6 g/dL (32.0-36.0); MEAN CORPUSCULAR VOLUME 86.2 fL (81.0-99.0); MEAN PLATELET VOLUME 6.9 fL (7.9-10.8); RED BLOOD COUNT 3.58 10^6/uL (4.20-5.40); RED CELL DISTRIBUTION WIDTH 13.6 % (12.0-15.0); WHITE BLOOD COUNT 11.7 x10^3/uL (4.8-10.8)
[2017-09-07 15:57] LABS: ALBUMIN 3.4 g/dL (3.2-5.5); ALBUMIN/GLOBULIN RATIO 0.9 (1.0-2.2); BILIRUBIN,TOTAL 0.3 mg/dL (0.2-1.0); CALCIUM 8.8 mg/dL (8.5-10.3); CREATININE 0.6 mg/dL (0.4-1.0); TOTAL PROTEIN 7.2 g/dL (6.7-8.2); URIC ACID 4.6 mg/dL (2.6-7.2)
== END 2017-09-07 15:25 | disposition home or self-care (01) ==
LOC: LAB 15:24
PROVIDERS: ATTEND Nurse Practitioner Obstetrics & Gynecology
DX: R10.30 Lower abdominal pain, unspecified (principal)
CPT/HCPCS: 80053; 83615; 84550

== ENCOUNTER 2017-09-07 22:05 | Outpatient (CLI) | payer OTHER ==
--- NOTE | 2017-09-07 23:38 | Ultrasound Report ---
EXAM: PELVIS ULTRASOUND, LIMITED EXAM DATE: 09/07/2017 10:25 PM. CLINICAL HISTORY: LOWER ABDOMINAL PAIN, UNSPECIFIED. COMPARISON: None. TECHNIQUE: Real-time scanning was performed with static images obtained. FINDINGS: Focused evaluation of the left inguinal region demonstrates no evidence of mass, lymphadeno nataly or hernia. The left ovary is visualized measuring 2.6 x 1.7 x 1.7 cm and is normal in appearanc e. IMPRESSION: No sonographic left groin abnormality. [facility] Referring Provider Line: [phone] SITE ID: [id number]
--- NOTE | 2017-09-07 23:38 | Ultrasound Preliminary Report ---
Exam: US ABDOMEN LIMITED IMPRESSION: No sonographic left groin abnormality. [facility] SITE ID: [id number]
== END 2017-09-07 22:06 | disposition home or self-care (01) ==
LOC: DI 22:05
PROVIDERS: ATTEND Nurse Practitioner Obstetrics & Gynecology
DX: R10.30 Lower abdominal pain, unspecified (principal)
CPT/HCPCS: 36415; 76705; 80053; 83615; 84550

== ENCOUNTER 2018-09-07 08:00 | Outpatient (CLI) | payer OTHER ==
[2018-09-08 15:45] LABS: MUDS CUTOFF CONCENTRATIONS CUTOFF CONC BELOW:
[2018-09-08 16:01] LABS: AMPHETAMINE SCREEN,URINE NEGATIVE (NEGATIVE); BENZODIAZEPINES SCREEN, URINE NEGATIVE (NEGATIVE); COCAINE SCREEN URINE NEGATIVE (NEGATIVE); METHADONE SCREEN, URINE NEGATIVE (NEGATIVE); METHAMPHETAMINES SCREEN, URINE NEGATIVE (NEGATIVE); OPIATE SCREEN, URINE NEGATIVE (NEGATIVE); OXYCODONE SCREEN, URINE NEGATIVE (NEGATIVE); PROPOXYPHENE SCREEN, URINE NEGATIVE (NEGATIVE); TRICYCLIC ANTIDEPRESSANT,URINE NEGATIVE (NEGATIVE)
== END 2018-09-07 23:59 | disposition home or self-care (01) ==
LOC: LAB.R 08:00
PROVIDERS: ATTEND Nurse Practitioner Obstetrics & Gynecology
DX: Z36.89 Encounter for other specified antenatal screening (principal)
CPT/HCPCS: 80306; 87491; 87591

== ENCOUNTER 2018-09-08 22:18 | Outpatient (CLI) | payer OTHER ==
--- NOTE | 2018-09-08 23:55 | Ultrasound Report ---
Reason: ENCOUNTER FOR TEST, RESULT POSITIVE Procedure Date: 09/08/2018 Accession Number: [id number] / [id number] Procedure: US - OB First Trimester CPT Code: FULL RESULT: EXAM: FIRST TRIMESTER OBSTETRIC ULTRASOUND (Less than 11 weeks) EXAM DATE: 09/08/2018 11:21 PM. CLINICAL HISTORY: ENCOUNTER FOR TEST, RESULT POSITIVE. LMP: 06/17/2018. COMPARISONS: None. TECHNIQUE: Transabdominal ultrasound examination with static image documentation. CLINICAL DATES: EGA 11 weeks 6 days with HONG 03/24/2019 based on LMP. ASSESSMENT: Gestational Sac: Single intrauterine. Embryo: CRL (crown-rump length) 43.1 mm = 11 weeks 1 day. Cardiac activity: 171 beats per minute. Amniotic fluid: Not accurately assessed at this gestational age. Early placenta: Anterior. Other: No perigestational fluid collection demonstrated. MATERNAL STRUCTURES: Uterus: Anteverted. Unremarkable. Cervix: Closed. Right Ovary/Adnexa: The ovary measures 2.5 x 1.6 x 1.5 cm, volume 3 cc. Unremarkable. Left Ovary/Adnexa: The ovary measures 2.7 x 2.1 x 1.7 cm, volume 5 cc. Unremarkable. Free Fluid: None. Other: None. IMPRESSION: 1. Single viable intrauterine at EGA 11 weeks 1 day with HONG 03/29/2019 based on crown-rump length, which is concordant with clinical dates. 2. Assigned dating is HONG 03/24/2019 based on LMP. EVELYN
== END 2018-09-08 22:19 | disposition home or self-care (01) ==
LOC: DI 22:18
PROVIDERS: ATTEND Registered Nurse
DX: Z32.01 Encounter for pregnancy test, result positive (principal)
CPT/HCPCS: 76801

== ENCOUNTER 2018-10-06 08:00 | Outpatient (CLI) | payer OTHER ==
[2018-10-06 19:55] LABS: BASOPHILS % (AUTO) 0.5 %; EOSINOPHILS # (AUTO) 0.1 10^3/uL (0.0-0.7); EOSINOPHILS % (AUTO) 2.2 %; HGB - HEMOGLOBIN 11.9 g/dL (12.0-16.0); LYMPHOCYTES # (AUTO) 1.2 10^3/uL (1.5-3.5); LYMPHOCYTES % (AUTO) 20.6 %; MEAN CORPUSCULAR HGB CONC 32.9 g/dL (32.0-36.0); MEAN CORPUSCULAR VOLUME 82.1 fL (81.0-99.0); MEAN PLATELET VOLUME 8.5 fL (7.9-10.8); MONOCYTES # (AUTO) 0.4 10^3/uL (0.0-1.0); MONOCYTES % (AUTO) 6.4 %; NEUTROPHILS # (AUTO) 4.2 10^3/uL (1.5-6.6); NEUTROPHILS % (AUTO) 70.3 %; PLT - PLATELET COUNT 243 10^3/uL (130-450); RED BLOOD COUNT 4.41 10^6/uL (4.20-5.40); RED CELL DISTRIBUTION WIDTH 15.2 % (12.0-15.0); WHITE BLOOD COUNT 5.9 x10^3/uL (4.8-10.8)
[2018-10-06 19:57] LABS: BILIRUBIN,URINE NEGATIVE (NEGATIVE); GLUCOSE, URINE (UA) NEGATIVE (NEGATIVE); KETONES,URINE (UA) 15 mg/dL (NEGATIVE); LEUKOCYTE ESTERASE, URINE NEGATIVE (NEGATIVE); NITRITE,URINE NEGATIVE (NEGATIVE); OCCULT BLOOD,URINE NEGATIVE (NEGATIVE); PROTEIN,URINE NEGATIVE (NEGATIVE); UROBILINOGEN,URINE 0.2 (NORMAL) E.U./dL (NORMAL)
[2018-10-06 20:07] LABS: AMORPHOUS SEDIMENT,UR Marked /LPF; BACTERIA,URINE None Seen /HPF (None Seen); CLARITY,URINE CLOUDY (CLEAR); RBC,URINE None Seen /HPF (0-5); SQUAMOUS EPITHELIAL CELL,UR RARE Squamous (<= Few)
[2018-10-06 20:17] LABS: HB2 TOTAL 12.6 g/dL; HEMOGLOBIN A1C 0.46 g/dL; HEMOGLOBIN A1C % 5.5 % (4.6-6.2)
[2018-10-06 20:22] LABS: ALBUMIN 3.6 g/dL (3.2-5.5); ALBUMIN/GLOBULIN RATIO 1.1 (1.0-2.2); BILIRUBIN,TOTAL 0.4 mg/dL (0.2-1.0); CALCIUM 8.9 mg/dL (8.5-10.3); CREATININE 0.5 mg/dL (0.4-1.0); TOTAL PROTEIN 6.8 g/dL (6.7-8.2); URIC ACID 3.1 mg/dL (2.6-7.2)
[2018-10-06 20:28] LABS: CREATININE,URINE 289.5 mg/dL; PROTEIN/CREATININE RATIO,URINE 0.1 (<=0.2)
[2018-10-08 09:56] LABS: HEPATITIS C ANTIBODY NON-REACTIVE (NON-REACTIVE)
[2018-10-08 10:26] LABS: HEPATITIS B SURFACE ANTIGEN NON-REACTIVE (NON-REACTIVE)
[2018-10-08 12:56] LABS: HIV AG/AB 4TH GEN NON-REACTIVE (NON-REACTIVE)
== END 2018-10-06 08:01 | disposition home or self-care (01) ==
LOC: LAB.WCP 08:00
PROVIDERS: ATTEND Nurse Practitioner Obstetrics & Gynecology
DX: O13.9 Gestational [pregnancy-induced] hypertension without significant proteinuria, unspecified trimester (principal); Z36.89 Encounter for other specified antenatal screening; O99.210 Obesity complicating pregnancy, unspecified trimester
CPT/HCPCS: 36415; 80053; 81001; 81599; 82570; 82950; 83036; 83615; 84156; 84550; 85025; 86592; 86762; 86803; 86850; 86900; 86901; 87086; 87340; 87389

== ENCOUNTER 2018-11-05 07:14 | Outpatient (CLI) | payer OTHER ==
--- NOTE | 2018-11-08 16:29 | Ultrasound Report ---
Reason: SUPERVISION OF Procedure Date: 11/05/2018 Accession Number: [id number] / [id number] Procedure: US - OB Detailed Eval CPT Code: FULL RESULT: EXAM: COMPLETE OBSTETRICAL ULTRASOUND EXAM DATE: 11/05/2018 09:11 AM. CLINICAL HISTORY: anatomic survey. COMPARISON: OB FIRST TRIMESTER 09/08/2018 10:34 PM. TECHNIQUE: Real-time sonographic evaluation of the fetus performed by the staffing operations manager. Multiple open claims representative static images were saved for review. DATING: Established EGA 20 weeks 1 day with HONG 03/24/2019 based on working due date. EGA 19 weeks 2 days with HONG 03/30/2019 based on the current ultrasound. GENERAL EVALUATION Meraz . Cardiac activity: 152 bpm. movement: Visualized. Presentation: Cephalic. Placenta: Anterior position. No evidence for previa. Umbilical cord: 3 vessel cord. Central placental cord origin. Amniotic fluid: Subjectively normal. MVP 3.6 cm and NINFA 12.5 cm. BIOMETRY Bi-Parietal Diameter (BPD): 4.4 cm, 19 weeks 1 day Head Circumference (HC): 16.6 cm, 19 weeks 2 days Abdominal Circumference (AC): 13.6 cm, 19 weeks 0 days Femur Length (FL): 3.1 cm, 19 weeks 5 days Estimated Weight: 289 grams, 13th percentile for 20 weeks 1 day. ANATOMY The intracranial structures, profile, face/nose/lips, spine, 4 chamber heart and outflow tracts, stomach, abdominal wall and cord insertion, diaphragm, kidneys, bladder, and extremities were visualized and demonstrate no abnormality. MATERNAL STRUCTURES Uterus: Unremarkable. Cervix: Long and closed. Transabdominal length 4.2 cm. Right ovary/adnexa: Unremarkable. Left ovary/adnexa: Unremarkable. Free fluid: None. IMPRESSION: 1. Meraz live intrauterine with gestational age 20 weeks 1 day based on working due date. 2. Estimated weight is at the 13th percentile for assigned dating. 3. Normal anatomic survey. No anatomic abnormalities are detected at this time. [facility]
== END 2018-11-05 07:15 | disposition home or self-care (01) ==
LOC: DI 07:14
PROVIDERS: ATTEND Registered Nurse
DX: Z34.90 Encounter for supervision of normal pregnancy, unspecified, unspecified trimester (principal)
CPT/HCPCS: 76811

== ENCOUNTER 2018-12-27 11:36 | Outpatient (CLI) | payer OTHER ==
[2018-12-27 18:43] LABS: HGB - HEMOGLOBIN 10.8 g/dL (12.0-16.0); MEAN CORPUSCULAR HGB CONC 31.1 g/dL (32.0-36.0); MEAN CORPUSCULAR VOLUME 86.8 fL (81.0-99.0); MEAN PLATELET VOLUME 10.3 fL (7.9-10.8); RED CELL DISTRIBUTION WIDTH 14.6 % (12.0-15.0); WHITE BLOOD COUNT 11.2 x10^3/uL (4.8-10.8)
== END 2018-12-27 23:59 | disposition home or self-care (01) ==
LOC: LAB.WCP 11:36
PROVIDERS: ATTEND Nurse Practitioner Obstetrics & Gynecology
DX: Z36.89 Encounter for other specified antenatal screening (principal)
CPT/HCPCS: 36415; 82950; 85027; 86850

== ENCOUNTER 2019-01-28 09:21 | Outpatient (CLI) | payer OTHER | END 2019-01-28 23:59 | disposition home or self-care (01) | LOC: LAB.R 09:21 | PROVIDERS: ATTEND Obstetrics & Gynecology | DX: Z36.89 Encounter for other specified antenatal screening (principal) | CPT/HCPCS: 82731 ==

== ENCOUNTER 2019-02-18 11:10 | Outpatient (CLI) | payer OTHER ==
[2019-02-18 11:51] VITALS: BP 135/98
[2019-02-18] MEDS ORDERED: BETAMETHASONE 30 MG/5 ML VIAL IM ONE ×2 (12:54→13:11)
[2019-02-18 13:29] LABS: BASOPHILS % (AUTO) 0.4 %; EOSINOPHILS # (AUTO) 0.1 10^3/uL (0.0-0.7); EOSINOPHILS % (AUTO) 1.2 %; HGB - HEMOGLOBIN 11.4 g/dL (12.0-16.0); LYMPHOCYTES # (AUTO) 1.6 10^3/uL (1.5-3.5); LYMPHOCYTES % (AUTO) 15.5 %; MEAN CORPUSCULAR HGB CONC 32.4 g/dL (32.0-36.0); MEAN CORPUSCULAR VOLUME 83.4 fL (81.0-99.0); MEAN PLATELET VOLUME 10.7 fL (7.9-10.8); MONOCYTES # (AUTO) 0.6 10^3/uL (0.0-1.0); MONOCYTES % (AUTO) 6.2 %; NEUTROPHILS # (AUTO) 7.8 10^3/uL (1.5-6.6); NEUTROPHILS % (AUTO) 76.1 %; PLT - PLATELET COUNT 242 10^3/uL (130-450); RED BLOOD COUNT 4.22 10^6/uL (4.20-5.40); WHITE BLOOD COUNT 10.2 x10^3/uL (4.8-10.8)
[2019-02-18 13:36] LABS: CREATININE,URINE 34.3 mg/dL; PROTEIN/CREATININE RATIO,URINE 0.4 (<=0.2)
[2019-02-18 13:44] LABS: URIC ACID 5.3 mg/dL (2.6-7.2)
[2019-02-18 13:52] LABS: CREATININE 0.6 mg/dL (0.4-1.0)
--- NOTE | 2019-03-07 20:52 | PROCEDURE REPORT ---
- HPI Diagnosis/Indication for NST: Other (23 yo at 35w1d with complicated for GHTN here for NST) Current EDU 03/24/19 Gestation 35 Weeks and 1 Days 2 Para 1 Vital Signs Heart Rate 97 02/18/19 11:20 Respiratory Rate 18 02/18/19 11:20 Blood Pressure 140/100 H 02/18/19 11:20 O2 Saturation 99 02/18/19 11:20 Temperature 99.0 F 02/18/19 11:40 Heart Rate 82 02/18/19 11:40 Respiratory Rate 16 02/18/19 11:40 Blood Pressure 135/98 H 02/18/19 11:51 O2 Saturation 99 02/18/19 11:40 - NST Procedure NST Procedure Start Date 02/18/19 Start Time 11:16 Stop Time 12:50 Vibroacoustic Stimulation Used No Patient States Movement Yes EFM 140 mod jp 15x15 accels no decels TOCO: quit BP mild range. no PIH symptoms - Results and Plan Findings/Impression: Cat I tracing BP elevated in mild range. No PIH symptoms Warning signs reviewed Discharged to home Cont routine OB care, including twice weekly NST, weekly NINFA, Q4 weeks growth us and IOL at 37 wga DOS: 02/18/19 DX: Gestational hypertension
== END 2019-02-18 13:30 | disposition home or self-care (01) ==
LOC: WFO 11:10 → FBP 11:12 → WFO 13:30
PROVIDERS: ATTEND Obstetrics & Gynecology
DX: O13.3 Gestational [pregnancy-induced] hypertension without significant proteinuria, third trimester (principal); Z3A.35 35 weeks gestation of pregnancy
CPT/HCPCS: 36415; 59025; 82565; 82570; 83615; 84156; 84450; 84550; 85025; 96372

== ENCOUNTER 2019-02-22 13:57 | Outpatient (CLI) | payer OTHER ==
[2019-02-22 15:04] LABS: BASOPHILS # (AUTO) 0.1 10^3/uL (0.0-0.1); BASOPHILS % (AUTO) 0.5 %; EOSINOPHILS # (AUTO) 0.1 10^3/uL (0.0-0.7); HGB - HEMOGLOBIN 11.7 g/dL (12.0-16.0); LYMPHOCYTES % (AUTO) 15.6 %; MEAN CORPUSCULAR HEMOGLOBIN 26.8 pg (27.0-31.0); MEAN CORPUSCULAR HGB CONC 32.2 g/dL (32.0-36.0); MEAN CORPUSCULAR VOLUME 83.1 fL (81.0-99.0); MEAN PLATELET VOLUME 10.9 fL (7.9-10.8); MONOCYTES # (AUTO) 0.7 10^3/uL (0.0-1.0); MONOCYTES % (AUTO) 5.4 %; NEUTROPHILS # (AUTO) 9.9 10^3/uL (1.5-6.6); NEUTROPHILS % (AUTO) 76.9 %; PLT - PLATELET COUNT 256 10^3/uL (130-450); RED BLOOD COUNT 4.37 10^6/uL (4.20-5.40); WHITE BLOOD COUNT 12.8 x10^3/uL (4.8-10.8)
[2019-02-22 15:11] LABS: CREATININE 0.6 mg/dL (0.4-1.0)
[2019-02-22 15:14] LABS: URIC ACID 4.3 mg/dL (2.6-7.2)
[2019-02-22 15:16] LABS: CREATININE,URINE 26.6 mg/dL; PROTEIN/CREATININE RATIO,URINE 2.4 (<=0.2)
[2019-02-22 15:50] VITALS: BP 155/104
--- NOTE | 2019-02-22 16:20 | PROCEDURE REPORT ---
- HPI Diagnosis/Indication for NST: Gestational Hypertension Current EDU 03/24/19 Gestation 35 Weeks and 5 Days 2 Para 1 Vital Signs Temperature 36.8 C 02/22/19 14:18 Heart Rate 84 02/22/19 14:18 Respiratory Rate 16 02/22/19 14:18 Blood Pressure 146/99 H 02/22/19 14:18 O2 Saturation 100 02/22/19 14:18 Temperature 36.8 C 02/22/19 14:18 Heart Rate 97 02/22/19 15:49 Respiratory Rate 16 02/22/19 14:18 Blood Pressure 155/104 H 02/22/19 15:49 O2 Saturation 100 02/22/19 14:18 - NST Procedure NST Procedure Start Date 02/22/19 Start Time 14:09 Stop Time 14:50 Vibroacoustic Stimulation Used No Patient States Movement Yes - Results and Plan Findings/Impression: There is a reactive NST. This was read on 02/22/2019. Laboratory Results - last 24 hr 02/22/19 02/22/19 02/22/19 14:54 14:54 14:54 WBC 12.8 H RBC 4.37 Hgb 11.7 L Hct 36.3 L MCV 83.1 MCH 26.8 L MCHC 32.2 RDW 14.0 Plt Count 256 MPV 10.9 H Neut # (Auto) 9.9 H Lymph # (Auto) 2.0 Woods # (Auto) 0.7 Eos # (Auto) 0.1 Baso # (Auto) 0.1 Absolute Nucleated RBC 0.00 Nucleated RBC % 0.0 Creatinine Estimated GFR (MDRD) Uric Acid 4.3 AST 15 Lactate Dehydrogenase 140 Urine Creatinine Ur Total Protein Timed Protein/Creatinin Ratio 02/22/19 02/22/19 14:54 14:54 WBC RBC Hgb Hct MCV MCH MCHC RDW Plt Count MPV Neut # (Auto) Lymph # (Auto) Woods # (Auto) Eos # (Auto) Baso # (Auto) Absolute Nucleated RBC Nucleated RBC % Creatinine 0.6 Estimated GFR (MDRD) 122 Uric Acid AST Lactate Dehydrogenase Urine Creatinine 26.6 Ur Total Protein Timed 65 Protein/Creatinin Ratio 2.4 H Impression: Gestational hypertension at 35 weeks and 5 days gestation Plan: The patient is going to be discharged home since all of her labs are within normal limits. She will return for another repeat NST on 02/24/2019.
== END 2019-02-22 16:30 | disposition home or self-care (01) ==
LOC: WFO 13:57 → FBP 13:59 → WFO 16:30
PROVIDERS: ATTEND Obstetrics & Gynecology
DX: O13.3 Gestational [pregnancy-induced] hypertension without significant proteinuria, third trimester (principal); Z3A.35 35 weeks gestation of pregnancy
CPT/HCPCS: 36415; 59025; 82565; 82570; 83615; 84156; 84450; 84550; 85025

== ENCOUNTER 2019-02-25 14:00 | Outpatient (CLI) | payer OTHER ==
[2019-02-25 16:45] VITALS: BP 146/96
[2019-02-25] MEDS ORDERED: LABETALOL 100 MG TABLET PO ONE (17:15)
--- NOTE | 2019-02-28 11:13 | PROCEDURE REPORT ---
- HPI Diagnosis/Indication for NST: Gestational Hypertension Current EDU 03/24/19 Gestation 36 Weeks and 1 Days 2 Para 1 Vital Signs Temperature 36.9 C 02/25/19 14:33 Heart Rate 100 02/25/19 14:33 Respiratory Rate 16 02/25/19 14:33 Blood Pressure 159/104 H 02/25/19 14:33 O2 Saturation 99 02/25/19 14:33 Temperature 36.9 C 02/25/19 14:33 Heart Rate 100 02/25/19 14:33 Respiratory Rate 16 02/25/19 14:33 Blood Pressure 146/96 H 02/25/19 16:45 O2 Saturation 99 02/25/19 14:33 - NST Procedure NST Procedure Start Date 02/25/19 Start Time 14:09 Stop Time 14:50 Vibroacoustic Stimulation Used No Patient States Movement Yes - Results and Plan Findings/Impression: Date of exam and date read: 02/25/2019: NST reactive, baseline 140s, moderate variability, + accels, no decels Daniel presents to [facility] for scheduled NST secondary to gestational HTN. She had an elevated protein/creatinine ratio of 2.4 (02/11- 0.1; 02/18-0.4; 02/22-2.4) She denies LANE, visual disturbances, RUQ or epigastric pain. No edema. BPs persistently 150s/100s. 100mg Labetalol administered and will initiate bid and continue to take BP daily. FINAL DIAGNOSIS: Pre-eclampsia, <37wks gestation Plan: Patient released home with handwritten BP parameters and when to return. She has emergency contact information. Rx handwritten and provided to pt for labetalol 100mg bid. Pt to return for scheduled NST 03/01/2019 or sooner PRN. IOL scheduled 03/03/2019. Pt verbalized understanding and agrees to above plan. She denies further questions or concerns at this time.
== END 2019-02-25 17:15 | disposition home or self-care (01) ==
LOC: WFO 14:00 → FBP 14:02 → WFO 17:15
PROVIDERS: ATTEND Nurse Practitioner Obstetrics & Gynecology
DX: O14.93 Unspecified pre-eclampsia, third trimester (principal); Z3A.36 36 weeks gestation of pregnancy
CPT/HCPCS: 59025; A9270

== ENCOUNTER 2019-02-28 11:21 | Inpatient (IN) | payer OTHER ==
[2019-03-02] MEDS ORDERED: ONDANSETRON 4 MG/2 ML VIAL IVP PRN (20:55)
[2019-03-02] MEDS ORDERED: SODIUM CHLORIDE FLUSH 0.9% 10 ML SYRINGE IVP PRN (20:55)
[2019-03-02] MEDS: LABETALOL 100 MG TABLET PO SCH (22:27)
[2019-03-02] MEDS: LACTATED RINGERS 1,000 ML IV SCH (23:05)
[2019-03-02 23:20] LABS: BASOPHILS # (AUTO) 0.1 10^3/uL (0.0-0.1); BASOPHILS % (AUTO) 0.4 %; EOSINOPHILS # (AUTO) 0.2 10^3/uL (0.0-0.7); EOSINOPHILS % (AUTO) 1.3 %; LYMPHOCYTES # (AUTO) 2.3 10^3/uL (1.5-3.5); LYMPHOCYTES % (AUTO) 16.8 %; MEAN CORPUSCULAR HEMOGLOBIN 26.5 pg (27.0-31.0); MEAN CORPUSCULAR HGB CONC 31.8 g/dL (32.0-36.0); MEAN CORPUSCULAR VOLUME 83.4 fL (81.0-99.0); MEAN PLATELET VOLUME 10.7 fL (7.9-10.8); MONOCYTES # (AUTO) 0.9 10^3/uL (0.0-1.0); MONOCYTES % (AUTO) 6.4 %; NEUTROPHILS % (AUTO) 74.6 %; PLT - PLATELET COUNT 272 10^3/uL (130-450); RED BLOOD COUNT 4.15 10^6/uL (4.20-5.40); RED CELL DISTRIBUTION WIDTH 15.4 % (12.0-15.0); WHITE BLOOD COUNT 13.5 x10^3/uL (4.8-10.8)
[2019-03-02 23:33] LABS: CREATININE 0.6 mg/dL (0.4-1.0)
[2019-03-02 23:49] LABS: URIC ACID 5.4 mg/dL (2.6-7.2)
[2019-03-03] MEDS: miSOPROStoL 100 MCG TABLET BC SCH ×2 (00:09→04:37)
[2019-03-03] MEDS ORDERED: SODIUM CHLORIDE FLUSH 0.9% 10 ML SYRINGE IVP SCH (01:00)
--- NOTE | 2019-03-03 07:26 | HISTORY & PHYSICAL EXAMINATION ---
Admit History - Visit Reason Visit Reason: Other - : 2 Parity: 1 Premature: 0 Ectopic: 0 : 0 Care: positive: [facility] Risk/History: positive: induced HTN Complications This : positive: induced HTN, Pre- eclampsia Smoking Status: Never smoker - Mother's Labs Mother's Blood Type: positive: AB Mother's RH: positive: Positive GBS: positive: Group B Step Negative Rubella Status: positive: Immune Meds/Allgy - Home Medications Home Medications: Ambulatory Orders Medication Instructions Recorded Confirmed Labetalol [Trandate] 100 mg PO BID tablet 09/01/17 - Allergies Allergies/Adverse Reactions: Allergies Allergy/AdvReac Type Severity Reaction Status Date / Time laundry detergant Allergy Rash Uncoded 03/27/16 07:37 Review of Systems - Constitutional Constitutional: denies: Fatigue, Fever, Chills, Malaise, Weakness - Eyes Eyes: denies: Blurred vision, Spots in vision, Dipolpia - Cardiovascular Cariovascular: denies: Chest pain, Edema, Lightheadedness - Respiratory Respiratory: denies: SOB at rest - Gastrointestinal Gastrointestinal: denies: Abdominal pain, Constipation, Diarrhea, Nausea, Vomiting - Integumentary Integumentary: denies: Rash, Pruritis - Neurological Neurological: denies: Headache, Dizziness - Psychiatric Psychiatric: denies: Depression, Anxiety Physical - Abdominal Exam Contraction Frequency (min/apart): intermittent Contraction Intensity: positive: Mild Uterine Resting Tone: positive: Soft - Monitoring Heart Rate Baseline: 140 Strip Review: positive: Category I - Presentation Presentation: positive: Vertex - Vaginal Exam Membranes: positive: Membranes intact - Speculum Exam Speculum Exam Performed: positive: No Plan for Labor - Plan For Labor I expect patient to be DC'd or transferred within 96 hours.: Yes Plan for Labor: HPI: Daniel is a 23yo @ 37.0wks gestation who presented for medical induction of labor secondary to pre-eclampsia which was diagnosed at 35wks gestation (pr/cr ratio = 2.4 02/22/2019) following a diagnosis of gestational hypertension diagnosed at 32 weeks gestation. She has had twice weekly NSTs since 34 weeks gestation. She received a single betamethasone injection at 34wks gestation. She has persistently denied LANE, visual disturbances, RUQ or epigastric pain and edema - and she denies these at present. She was started on 100mg PO labetalol bid at 36 weeks gestation. She has been taking her BPs at least 4 x per day at home and after initiating labetalol her BPs have remained 140s/90s or lower. Her is otherwise complicated by mild anemia for which she was advised to increase her intake of iron rich foods. Her admit Hgg/Hct was 11.0/34.6. She presented to [facility] 03/02/2019 for medical induction of labor with pre-induction cervical ripening and she received her first dose of 50mcg BC misoprostol on 03/03/2019 at approximately 0001. SVE /-3, posterior, vertex, with intact membranes. Throughout the night FHR have been Category II with FHR baseline 145s, moderate variability, + accels, with intermittent variable decelerations and brief periods of recurrent variable decelerations with occasional late decelerations. Patient was given a 750mL bolus of IV fluids, O2 administered via nonrebreather mask, and patient was rotated with frequent position changes. For the past hour the FHR has remained Category I. Dating criteria: LMP: 06/17/2018 Initial Ultrasound: Serial Exams: Agree OB History: G1: 08/30/2018, , 37.0wks gestation IOL secondary to gestational HTN G2: current; pre-eclampsia without severe features PMHx: Gestational HTN Surgical Hx: None Social Hx: Never smoker, no ETOH or IVDA, works at [employer], [place] Family Hx: no significant labs: Hgb 11.0 Hct 34.6 PLT 272 AB+, antibody neg Rubella immune HIV neg RPR neg Hep B neg Hep C neg Hgb A1C 5.5 GC/CT neg 1 hour GTT 137 GBS neg Tdap 01/12/2019 Physical Exam: Normocephalic, atraumatic Heart RRR w/o M/G/R Lungs CTAB Abdomen gravid, soft, nontender SVE - deferred at this time Bilateral LE's no edema Mood is good Assessment: Preeclampsia without severe features - currently on 100mg PO labetolol bid with stable BPs Pre-induction cervical ripening with misoprostol s/p 2 doses FHR Category I Plan: Continuous monitoring Repeat SVE prior to next dose of misoprostol - consider Pitocin with favorable cervix Consulted with solution coordinator physician who is in agree with above plan Anticipate spontaneous vaginal delivery
--- NOTE | 2019-03-03 08:34 | PROVIDER PROGRESS NOTE ---
Labor Progress Note - Uterine Monitoring Uterine Monitoring Mode: positive: External toco Contraction Frequency (min/apart): 2-6 Contraction Intensity: positive: Mild Uterine Resting Tone: positive: Soft - Monitoring Monitor Mode: positive: External ultrasound Heart Rate Baseline: 145 Heart Rate Variability: positive: Moderate (6-25 bmp) Accelerations: positive: Present, 15x15 Decelerations: positive: None Strip Review: positive: Category I - Vaginal Exam Dilation (in cm): 2 Effacement (%): 75 Station: -1 Cervical Position: Midposition - Labor Progress Note Labor Progress Note/Additional Text: S: Sitting up in bed and not feeling her contractions. supportive at the bedside. She is feeling well and ready to have a baby. She denies LANE, visual disturbances, RUQ or epigastric pain, no edema. O: BP 140s-150s/80s-90s FHR baseline 140, moderate variability, + accels, no decels Contractions palpate mild every 2-6 minutes with soft resting tone A: 23yo @ 37.0wks gestation Pre-eclampsia without severe features FHR Category I P: Initiate pitocin with titration per protocol Continuous monitoring Repeat SVE in 4 hours or sooner PRN. Anticipate spontaneous vaginal delivery.
[2019-03-03] MEDS: OXYTOCIN/DEXTROSE 5 % 30 UNIT/500 ML BAG IV SCH (09:08)
[2019-03-03] MEDS: LABETALOL 100 MG TABLET PO SCH ×2 (09:08→20:30)
--- NOTE | 2019-03-03 09:34 | CONSULTATION NOTE ---
DATE OF SERVICE: 03/03/2019 Physician: Morgan Mendoza MD IDENTIFICATION: The patient is a 22-year-old 2, para 1 female. She has an EDC of 03/24/2019 . This makes her 37 weeks today. CHIEF COMPLAINT: Preeclampsia. HISTORY OF PRESENT ILLNESS: Patient started her OB care at 11 weeks EGA. She developed difficulty w ith gestational hypertension during the , requiring the use of labetalol. She is currently taking 100 mg p.o. b.i.d. She has a history of having gestational hypertension with her last pregnan cy without proteinuria. During that , she was put on labetalol 200 mg. This has been significant in that she developed a protein creatinine ratio of 2. She has had normal labs. Jaden castellanos initiated OB care at 11 weeks EGA. Her labs showed her to be AB positive. She is rubella immune. Her 50 gram Glucola was 137. Her hemoglobin A1c was 5.5. PAST MEDICAL HISTORY: Positive for gestational hypertension with her last ; however, she di d not have chronic hypertension. PAST SURGICAL HISTORY: None. ALLERGIES: NONE KNOWN. CURRENT MEDICATIONS 1. vitamins. 2. Labetalol 100 mg p.o. b.i.d. HABITS: Patient denies use of alcohol, tobacco or street or addictive drugs. PHYSICAL EXAMINATION GENERAL: Patient is a well-developed, well-nourished female. She is in no acute distress at this ti me. VITAL SIGNS: Blood pressure 140s/90s. HEENT: Pupils are equal, round. Extraocular muscles intact. Thyroid is not palpably enlarged. HEART: Regular rate and rhythm without murmurs. LUNGS: Lung nath are clear without rales or wheezes. BACK: No spinal or CVA tenderness noted. ABDOMEN: Gravid roughly 37 cm, nontender. Cervical examination was performed by Tasha May. DTRs are 3+ with a single beat of clonus at this time. She does show swelling in both upper and lower ext remities. IMPRESSION 1. A 23-year-old G2, P1 female, 37 weeks. 2. Preeclampsia. PLAN: At this particular time, we will proceed on with induction. We will manage her blood pressure with labetalol. 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 At that point, we will start james gamble on her. When she becomes able to be ruptured, we will rupture. Her strip has shown some evidence of decelerations, we will try and postpone rupture until later as this will probably cushion the cord . TD: 03/03/2019 08:59
[2019-03-03 10:03] LABS: CREATININE,URINE 31.9 mg/dL; PROTEIN/CREATININE RATIO,URINE 3.1 (<=0.2)
--- NOTE | 2019-03-03 12:51 | PROVIDER PROGRESS NOTE ---
Labor Progress Note - Uterine Monitoring Uterine Monitoring Mode: positive: External toco Contraction Frequency (min/apart): 2-6 Contraction Intensity: positive: Moderate Uterine Resting Tone: positive: Soft - Monitoring Monitor Mode: positive: External ultrasound Heart Rate Baseline: 130 Heart Rate Variability: positive: Moderate (6-25 bmp) Accelerations: positive: Present, 15x15 Decelerations: positive: Late, Variable, Intermittent (<50% x20 min) Strip Review: positive: Category I - Vaginal Exam Dilation (in cm): 3 Effacement (%): 75 Station: -1 Cervical Position: Midposition - Labor Progress Note Labor Progress Note/Additional Text: S: Patient comfortable in bed and she is barely feeling contractions rating them 1/10 on a pain scale. Her family is supportive at the bedside. We reviewed possibility of a delivery secondary to recurrent decelerations with onset of consistent contractions. Her mood is good and she is feeling. O: BPs 140s/90s. FHR baseline 130s, moderate variability, + accels, intermittent variable decelerations which have resolved since shutting of pitocin. AROM moderate amount of clear fluid @ 1235. A: 23yo @ 37.0wks gestation Pre-eclampsia Induction of labor secondary to pre-eclampsia P: Continue expectant management x 4 hours before initiation of pitocin again. Continuous monitoring Reviewed patient status and plan of care with business process consultant physician who is in agreement with above plan. Reviewed with patient, family at the bedside, and labor and delivery RNs who verbalized understanding and agree with above plan. They deny further questions or concerns at this time. Reevaluate in 4 hours or sooner PRN.
[2019-03-03] MEDS: LACTATED RINGERS 1,000 ML IV SCH (13:20)
--- NOTE | 2019-03-03 14:33 | ANESTHESIA ---
Pre-Anesthesia VS, & Labs - Diagnosis Non-reassuring monitoring, far from delivery. intolerance of labor - Procedure primary c/s Height 5 ft 4 in Weight (kg) 97.069 kg - NPO Last Food Intake: 829 - Is Patient ?: Yes - Lab Results Current Lab Results: Laboratory Tests 03/02/19 23:05: Creatinine 0.6, Estimated GFR (MDRD) 122, ALT 17 03/02/19 23:05: Uric Acid 5.4, AST 20 03/02/19 23:05: WBC 13.5 H, RBC 4.15 L, Hgb 11.0 L, Hct 34.6 L, MCV 83.4, MCH 26.5 L, MCHC 31.8 L, RDW 15.4 H, Plt Count 272, MPV 10.7, Neut # (Auto) 10.0 H, Lymph # (Auto) 2.3, [place] # (Auto) 0.9, Eos # (Auto) 0.2, Baso # (Auto) 0.1, Absolute Nucleated RBC 0.00, Nucleated RBC % 0.0 03/02/19 23:05: Lactate Dehydrogenase 144 Fish Bones: 03/02/19 23:05 03/02/19 23:05 Home Medications and Allergies Active Medications Lactated Ringer's (Lr) 1,000 mls @ 100 mls/hr IV .Q10H JANI Last Admin: 03/03/19 13:20 Dose: 100 mls/hr OXYTOCIN/DEXTROSE 5 % (Pitocin/Dextrose 5%) 30 unit in 500 mls @ 1 mls/hr IV TITR JANI; Protocol Last Admin: 03/03/19 09:08 Dose: 1 milliunit/min, 1 mls/hr Labetalol HCl (Trandate) 100 mg PO BID JANI Last Admin: 03/03/19 09:08 Dose: 100 mg Misoprostol (Cytotec) 50 mcg BC Q4HR JANI Last Admin: 03/03/19 04:37 Dose: 50 mcg Ondansetron HCl (Zofran Inj) 4 mg IVP Q4HR PRN PRN Reason: Nausea / Vomiting Sodium Chloride (Normal Saline Flush 0.9%) 10 ml IVP 0100,0900,1700 JANI Sodium Chloride (Normal Saline Flush 0.9%) 10 ml IVP PRN PRN PRN Reason: NEEDED PER PROVIDER ORDERS Last Admin: 03/02/19 23:20 Dose: 10 ml Allergies/Adverse Reactions: Allergies Allergy/AdvReac Type Severity Reaction Status Date / Time laundry detergant Allergy Rash Uncoded 03/27/16 07:37 Anes History & Medical History - Medical History Cardiovascular: reports: Hypertension (Gestational hypertension, pre-eclampsia without severe features) Pulmonary: reports: None Gastrointestinal: reports: None Urinary: reports: None Neuro: reports: None Musculoskeletal: reports: None Endocrine/Autoimmune: reports: None Blood Disorders: reports: None Skin: reports: None Smoking Status: Never smoker Psychosocial: reports: No issues indicated - Obstetrical History : 2 Parity: 1 Events: positive: induced HTN Complications: positive: induced HTN, Pre-eclampsia Exam General: Alert, Oriented x3, Cooperative, No acute distress Dental: WNL Mouth Openin Fingerbreadth Neck Mobility: Normal Mallampati classification: II Thyromental Distance: greater than 6 cm Respiratory: Lungs clear, Normal breath sounds, No respiratory distress, No accessory muscle use Cardiovascular: Regular rate, Normal S1, Normal S2, No murmurs Mental/Cognitive Status: Alert/Oriented X3, Normal for patient Plan Anesthesia Type: Spinal Consent for Procedure(s) Verified and Reviewed: Yes Code Status: Attempt Resuscitation ASA classification: 2-Mild systemic disease Is this case an emergency?: Yes
[2019-03-03] MEDS ORDERED: CITRIC ACID/SODIUM CITRATE 15 ML UDC PO ONE ×2 (14:37→14:47)
--- NOTE | 2019-03-03 14:38 | PROVIDER PROGRESS NOTE ---
Labor Progress Note - Uterine Monitoring Uterine Monitoring Mode: positive: External toco Contraction Frequency (min/apart): 3-5 Contraction Intensity: positive: Moderate Uterine Resting Tone: positive: Soft - Monitoring Monitor Mode: positive: External ultrasound Heart Rate Baseline: 130 Heart Rate Variability: positive: Moderate (6-25 bmp) Accelerations: positive: Present, 15x15 Decelerations: positive: Late, Variable, Recurrent (>50% x20 min) Strip Review: positive: Category II - Labor Progress Note Labor Progress Note/Additional Text: S: Patient in bed after being placed in a hands and knees position. She is starting to feel her contractions but is able to talk through them and cope easily. She does not feel she is in any kind of active labor. We have discussed that her baby is not tolerating her contractions well. and mother supportive at the bedside. O: FHR basline 130s, moderate variability, + accels, recurrent variable decelerations and intermittent late decelerations. Contractions palpate moderate every 3-5 minutes with soft resting tone. BP have remained stable on 100mg labetalol bid A: 23yo @ 39.0wks gestation Pre-eclampsia without severe features FHR Category II P: Dr Mendoza notified of persistent Category II FHR tracing isolated from active labor and the decision is made to move to a delivery. OR team, anesthesia, and director of consumer affairs supervisor hairspring fabrication notified. Care handed to Dr. Mendoza, director of consumer affairs physician.
[2019-03-03] MEDS ORDERED: ceFAZolin 2 GM in SODIUM CHLORIDE 0.9% 100ML 100 ML IV ONE (14:41)
[2019-03-03] MEDS ORDERED: ceFAZolin 1 GM VIAL ONE (14:44)
[2019-03-03] MEDS ORDERED: MORPHINE PF 10 MG/10 ML AMP EPI ONE (14:48)
[2019-03-03] MEDS ORDERED: OXYTOCIN 10 UNIT/ML VIAL IV ONE (14:48)
[2019-03-03] MEDS ORDERED: fentaNYL 100 MCG/2 ML VIAL IVP ONE (14:48)
[2019-03-03] MEDS ORDERED: LACTATED RINGERS 1,000 ML IV ONE (14:48)
[2019-03-03] MEDS ORDERED: LABETALOL 5 MG/1 ML 20 ML MDV IVP ONE (14:48)
[2019-03-03] MEDS ORDERED: CARBOPROST TROMETHAMINE 250 MCG/ML AMP IM ONE (15:25)
[2019-03-03] MEDS ORDERED: CARBOPROST TROMETHAMINE 250 MCG/ML AMP IM PRN (16:28)
[2019-03-03] MEDS ORDERED: OXYTOCIN 10 UNIT/ML VIAL IM PRN (16:28)
[2019-03-03] MEDS ORDERED: SODIUM CHLORIDE FLUSH 0.9% 10 ML SYRINGE IVP PRN (16:28)
[2019-03-03] MEDS ORDERED: diphenhydrAMINE 25 MG CAPSULE PO PRN (16:28)
--- NOTE | 2019-03-03 16:41 | OPERATIVE REPORT ---
Operative Report - General Admit Date: 03/03/19 Procedure Date: 03/03/19 Planned Procedure: PLTC/S Pre-Op Diagnosis: 1. 37 weeks, 2. Preeclampsia, 3. nonreassuring monitoring Procedure Performed: PLTC/S Post Op Diagnosis: Same 4. nucal cord X1 with snoulder cord - Procedure Note Primary Surgeon: Morgan Mendoza MD Secondary Surgeon: Tasha VENTURA Anesthesia Provider: Matt Way CRNA Anesthesia Technique: Spinal Pathology: Placenta IV Fluids (mL): 500 Estimated Blood Loss (mL): 300 Urine Output (mL): 100 - Other Other Information/Narrative: Dictation # [id number]
[2019-03-03] MEDS ORDERED: LACTATED RINGERS 1,000 ML IV SCH (17:00)
[2019-03-03] MEDS ORDERED: SODIUM CHLORIDE 0.9% 1,000 ML IV SCH (17:00)
[2019-03-03] MEDS ORDERED: SIMETHICONE CHEW 80 MG TABLET PO SCH (17:30)
--- NOTE | 2019-03-03 18:35 | OPERATIVE REPORT ---
DATE OF SERVICE: 03/03/2019 Physician: Morgan Mendoza MD PREOPERATIVE DIAGNOSES 1. Thirty-seven weeks. 2. Preeclampsia. 3. Nonreassuring monitoring. POSTOPERATIVE DIAGNOSES 1. Thirty-seven weeks. 2. Preeclampsia. 3. Nonreassuring monitoring. 4. Tight Nuchal cord x1 with shoulder bandolier. PROCEDURE PERFORMED: Primary low transverse section. SURGEON: Morgan Mendoza MD PLATE PRINTER: Tasha May, certified nurse compliance review specialist. ANESTHESIA PROVIDER: Regina Way CRNA. ANESTHETIC: Spinal. PATHOLOGY: Placenta. FLUIDS: 500 mL ESTIMATED BLOOD LOSS: 300 mL URINE OUTPUT: 100 mL FINDINGS: Upon entering the abdominal cavity, the head was noted to be left occiput transverse. A nuchal cord x1 was noted with a bandolier, which was tight. The amniotic fluid was clear at this time. Placenta when delivered was noted to have a calcific nodule, which was roughly 3 cm in diameter. The cord was marginally inserted, and there was evidence of an accessory lobe. Following adequate spinal anesthesia, patient was placed in the supine position with a roll under the right hip. At this point, she was prepped and draped in the usual fashion. A Cobos catheter was placed, but noted to be very stenotic, so a red Mathew was placed at this time. At this point, she was prepped and draped in the usual fashion. Following a timeout, in which concerns were addressed, a Pfannenstiel incision was carried down through the subcutaneous tissue to the fascia. The fascia was incised transversely, then using both blunt and sharp dissection, it was freed from rectus abdominis and pyramidalis. Rectus was split along the midline. The peritoneum was entered high. Care was taken to avoid any injury to bowel or bladder. At this point, a bladder flap was developed using both blunt and sharp dissection and then a low transverse uterine incision was accomplished using a #10 blade, bandage scissors and finger-spread technique. Retraction was preformed by Tasha VENTURA during this time. The amniotic membranes were ruptured and the fluid was noted to be clear. At this point, the head of the infant was lifted out of the pelvis, delivered and then the cord was reduced and the remainder of the infant was delivered without difficulty. The cord was allowed to pulsate for roughly 30 seconds, during which time the was vigorous and cried. The cord was doubly clamped, divided, and the infant was handed to the automatic drill operator that was standing by. At this point, cord blood samples were obtained, following which, the placenta was manually and spontaneously delivered. It was set aside and the uterus was wrapped in a moist lap, cleansing the internal portion with dry lap. The excess of membranes were removed with ring forceps and the cervix was dilated with a ring forceps. The incision was closed with running locking suture of 0 Vicryl with an imbricating layer of 0 Vicryl. The incision was inspected for bleeding, none was noted. At this point, the uterus was tipped forward. The cul-de-sac was suctioned free of any blood and then an estimated blood loss was obtained. This was noted to be roughly 300 mL. At this point, the cul-de-sac was irrigated. Uterus delivered back in the abdominal cavity and the gutters were likewise irrigated. The incision was reinspected. There was no evidence of any bleeding. The peritoneum was closed using 2-0 Vicryl following which the rectus reapproximated with [id number] of 2-0 Vicryl. Rectus was irrigated. Hemostasis was assured and the fascia was closed using looped 0 PDS. Subcutaneous tissue was closed utilizing 2-0 Vicryl and the incision itself was closed utilizing 4-0 Monocryl subcuticular. A wound VAC was placed. The procedure was terminated. The patient was taken to recovery in stable condition. Sponge and needle counts were correct. TD: 03/03/2019 16:52 OSMANI
[2019-03-03] MEDS ORDERED: OXYTOCIN/DEXTROSE 5 % 30 UNIT/500 ML BAG IV ONE (19:58)
[2019-03-03] MEDS: KETOROLAC 30 MG/ML VIAL IVP SCH (20:29)
[2019-03-03] MEDS: ACETAMINOPHEN 500 MG TABLET PO SCH (20:29)
[2019-03-03] MEDS: DOCUSATE SODIUM 100 MG CAPSULE PO SCH (20:30)
[2019-03-04] MEDS: KETOROLAC 30 MG/ML VIAL IVP SCH ×3 (02:04→16:14)
[2019-03-04] MEDS ORDERED: LACTATED RINGERS 500 ML IV ONE (02:21)
[2019-03-04] MEDS: ACETAMINOPHEN 500 MG TABLET PO SCH ×3 (05:12→20:48)
[2019-03-04 05:21] LABS: BASOPHILS # (AUTO) 0.1 10^3/uL (0.0-0.1); BASOPHILS % (AUTO) 0.4 %; EOSINOPHILS # (AUTO) 0.2 10^3/uL (0.0-0.7); EOSINOPHILS % (AUTO) 1.3 %; HGB - HEMOGLOBIN 10.6 g/dL (12.0-16.0); LYMPHOCYTES # (AUTO) 2.2 10^3/uL (1.5-3.5); LYMPHOCYTES % (AUTO) 15.6 %; MEAN CORPUSCULAR HEMOGLOBIN 26.4 pg (27.0-31.0); MEAN CORPUSCULAR HGB CONC 31.6 g/dL (32.0-36.0); MEAN CORPUSCULAR VOLUME 83.3 fL (81.0-99.0); MEAN PLATELET VOLUME 10.2 fL (7.9-10.8); MONOCYTES # (AUTO) 0.8 10^3/uL (0.0-1.0); MONOCYTES % (AUTO) 5.5 %; NEUTROPHILS # (AUTO) 10.9 10^3/uL (1.5-6.6); NEUTROPHILS % (AUTO) 76.7 %; PLT - PLATELET COUNT 243 10^3/uL (130-450); RED BLOOD COUNT 4.02 10^6/uL (4.20-5.40); RED CELL DISTRIBUTION WIDTH 15.5 % (12.0-15.0); WHITE BLOOD COUNT 14.2 x10^3/uL (4.8-10.8)
[2019-03-04 05:33] LABS: CREATININE 0.7 mg/dL (0.4-1.0); URIC ACID 5.3 mg/dL (2.6-7.2)
[2019-03-04] MEDS: DOCUSATE SODIUM 100 MG CAPSULE PO SCH ×2 (08:56→20:49)
[2019-03-04] MEDS: LABETALOL 100 MG TABLET PO SCH ×2 (08:56→20:49)
[2019-03-04] MEDS: SODIUM CHLORIDE FLUSH 0.9% 10 ML SYRINGE IVP SCH ×2 (08:57→16:34)
[2019-03-04] MEDS: SIMETHICONE CHEW 80 MG TABLET PO SCH ×3 (10:06→18:01)
--- NOTE | 2019-03-04 10:08 | PROVIDER PROGRESS NOTE ---
Subjective - General Admit Date: 03/03/19 Procedure Date: 03/03/19 Post Op Days: 1 Procedure Performed: PLTC/S - Review of Systems Wound/Incisions: positive: Dressing dry and intact General: positive: No symptoms (Pain 1-2/10) Gastrointestinal: positive: Flatus Genitourinary: positive: No symptoms. negative: Dysuria (Voiding) Neurological: Objective - Patient Data Reviewed Vital Signs: Yes Vital Signs: Vital Signs x48h Temp Pulse Resp BP Pulse Ox 03/04/19 09:02 36.9 C 86 18 138/87 H 97 03/04/19 03:38 36.8 C 84 16 134/87 H 96 03/04/19 02:21 20 Weight: Weight 03/02/19 03/03/19 03/04/19 23:59 23:59 23:59 Weight (kg) 97.069 kg Intake & Output: Intake and Output Totals x24h 03/02/19 03/03/19 03/04/19 23:59 23:59 23:59 Intake Total 1000 Output Total 620 295 Balance 380 -295 - Lab Results Lab Results: 03/04/19 05:15 03/04/19 05:15 Other Lab Results: Lab Results x24hrs 03/04/19 03/04/19 03/04/19 Range/Units 05:15 05:15 05:15 WBC 14.2 H (4.8-10.8) x10^3/uL RBC 4.02 L (4.20-5.40) 10^6/uL Hgb 10.6 L (12.0-16.0) g/dL Hct 33.5 L (37.0-47.0) % MCV 83.3 (81.0-99.0) fL MCH 26.4 L (27.0-31.0) pg MCHC 31.6 L (32.0-36.0) g/dL RDW 15.5 H (12.0-15.0) % Plt Count 243 (130-450) 10^3/uL MPV 10.2 (7.9-10.8) fL Neut # (Auto) 10.9 H (1.5-6.6) 10^3/uL Lymph # (Auto) 2.2 (1.5-3.5) 10^3/uL [place] # (Auto) 0.8 (0.0-1.0) 10^3/uL Eos # (Auto) 0.2 (0.0-0.7) 10^3/uL Baso # (Auto) 0.1 (0.0-0.1) 10^3/uL Absolute Nucleated RBC 0.00 x10^3/uL Nucleated RBC % 0.0 /100WBC Creatinine 0.7 (0.4-1.0) mg/dL Estimated GFR (MDRD) 102 (>89) Uric Acid 5.3 (2.6-7.2) mg/dL AST 21 (10-42) IU/L Lactate Dehydrogenase 200 (91-225) IU/L - Current Medications Current Medications: Current Medications Generic Name Dose Route Start Last Admin Trade Name Freq PRN Reason Stop Dose Admin Acetaminophen 1,000 mg 03/03/19 17:00 03/04/19 05:12 Tylenol PO 1,000 mg Q8H JANI Administration Docusate Sodium 100 mg 03/03/19 21:00 03/04/19 08:56 Colace 100mg Capsule PO 100 mg BID JANI Administration OXYTOCIN/DEXTROSE 5 % 30 unit in 500 mls @ 1 mls/hr 03/03/19 09:00 03/03/19 09:08 Pitocin/Dextrose 5% IV 1 milliunit/min TITR JANI 1 mls/hr Administration Protocol 1 MILLIUNIT/MIN Ketorolac Tromethamine 30 mg 03/03/19 17:00 03/04/19 08:56 Toradol Inj (30mg) IVP 03/04/19 11:01 30 mg Q6H JANI Administration Labetalol HCl 100 mg 03/02/19 22:00 03/04/19 08:56 Trandate PO 100 mg BID JANI Administration Sodium Chloride 10 ml 03/03/19 17:00 03/04/19 08:57 Normal Saline Flush 0.9% IVP 10 ml 0100,0900,1700 JANI Administration - Physical Exam Wound/Incisions: positive: Dressing dry and intact General Appearance: positive: No acute distress, Alert Respiratory: positive: Chest non-tender, No respiratory distress, Breath sounds nml Cardiovascular: positive: Regular rate & rhythm, No murmur, No gallop Abdomen: positive: Non-tender, Nml bowel sounds Skin: positive: Color nml, No rash, Warm, Dry Extremities: negative: Calf tenderness, Charles's sign/cords Neurologic/Psychiatric: positive: Oriented x3 Impression/Plan - Problem List Problem List: POD #1 good pain control. changing to oral Motrin PreE. good BP control on labetolol [address] or visual changes will nolt start Magnesium at this time Dr Ochoa to see in my absence.
[2019-03-04 11:27] LABS: CREATININE,URINE 80.5 mg/dL; PROTEIN/CREATININE RATIO,URINE 0.6 (<=0.2)
[2019-03-04] MEDS: OXYTOCIN/DEXTROSE 5 % 30 UNIT/500 ML BAG IV SCH (12:04)
[2019-03-04] MEDS: IBUPROFEN 800 MG TABLET PO SCH (15:38)
[2019-03-04] MEDS: oxyCODONE 5 MG TABLET PO PRN (21:26)
[2019-03-05] MEDS: IBUPROFEN 800 MG TABLET PO SCH ×3 (00:25→16:22)
[2019-03-05] MEDS: SODIUM CHLORIDE FLUSH 0.9% 10 ML SYRINGE IVP SCH ×3 (00:25→10:26)
[2019-03-05] MEDS: ACETAMINOPHEN 500 MG TABLET PO SCH ×3 (05:00→21:16)
[2019-03-05 05:52] LABS: BASOPHILS # (AUTO) 0.1 10^3/uL (0.0-0.1); BASOPHILS % (AUTO) 0.4 %; EOSINOPHILS # (AUTO) 0.3 10^3/uL (0.0-0.7); EOSINOPHILS % (AUTO) 2.5 %; HGB - HEMOGLOBIN 9.5 g/dL (12.0-16.0); LYMPHOCYTES # (AUTO) 2.4 10^3/uL (1.5-3.5); LYMPHOCYTES % (AUTO) 21.6 %; MEAN CORPUSCULAR HGB CONC 31.9 g/dL (32.0-36.0); MEAN CORPUSCULAR VOLUME 84.7 fL (81.0-99.0); MONOCYTES # (AUTO) 0.6 10^3/uL (0.0-1.0); MONOCYTES % (AUTO) 5.6 %; NEUTROPHILS # (AUTO) 7.8 10^3/uL (1.5-6.6); NEUTROPHILS % (AUTO) 69.3 %; PLT - PLATELET COUNT 230 10^3/uL (130-450); RED BLOOD COUNT 3.52 10^6/uL (4.20-5.40); RED CELL DISTRIBUTION WIDTH 15.7 % (12.0-15.0); WHITE BLOOD COUNT 11.3 x10^3/uL (4.8-10.8)
[2019-03-05 06:01] LABS: URIC ACID 5.3 mg/dL (2.6-7.2)
[2019-03-05] MEDS: oxyCODONE 5 MG TABLET PO PRN ×3 (06:59→21:15)
[2019-03-05] MEDS: LABETALOL 100 MG TABLET PO SCH ×2 (08:36→21:16)
[2019-03-05] MEDS: DOCUSATE SODIUM 100 MG CAPSULE PO SCH ×2 (08:36→21:16)
--- NOTE | 2019-03-05 09:05 | PROVIDER PROGRESS NOTE ---
Subjective - General Admit Date: 03/03/19 Procedure Date: 03/03/19 Post Op Days: 2 Procedure Performed: PLTC/S - Review of Systems Wound/Incisions: positive: Dressing dry and intact General: positive: No symptoms (Pain 1-2/10) Gastrointestinal: positive: Flatus Genitourinary: positive: No symptoms. negative: Dysuria (Voiding) - Other Other Information/Narrative: The patient continues to do very well. She is without any complaint this morning.Lochia is light. She is passing flatus. She had a bowel movement yesterday. She is breast-feeding without difficulty. Objective - Patient Data Vital Signs: Vital Signs x48h Temp Pulse Resp BP Pulse Ox 03/05/19 08:19 37.0 C 81 18 152/91 H 99 03/05/19 05:06 88 16 139/72 H 98 03/05/19 03:35 36.9 C 81 17 150/80 H 97 Intake & Output: Intake and Output Totals x24h 03/03/19 03/04/19 03/05/19 23:59 23:59 23:59 Intake Total 1000 1500 Output Total 620 745 Balance 380 755 - Lab Results Lab Results: 03/05/19 05:40 03/04/19 05:15 Other Lab Results: Lab Results x24hrs 03/05/19 03/05/19 03/05/19 Range/Units 05:40 05:40 05:40 WBC 11.3 H (4.8-10.8) x10^3/uL RBC 3.52 L (4.20-5.40) 10^6/uL Hgb 9.5 L (12.0-16.0) g/dL Hct 29.8 L (37.0-47.0) % MCV 84.7 (81.0-99.0) fL MCH 27.0 (27.0-31.0) pg MCHC 31.9 L (32.0-36.0) g/dL RDW 15.7 H (12.0-15.0) % Plt Count 230 (130-450) 10^3/uL MPV 10.0 (7.9-10.8) fL Neut # (Auto) 7.8 H (1.5-6.6) 10^3/uL Lymph # (Auto) 2.4 (1.5-3.5) 10^3/uL [place] # (Auto) 0.6 (0.0-1.0) 10^3/uL Eos # (Auto) 0.3 (0.0-0.7) 10^3/uL Baso # (Auto) 0.1 (0.0-0.1) 10^3/uL Absolute Nucleated RBC 0.00 x10^3/uL Nucleated RBC % 0.0 /100WBC Uric Acid 5.3 (2.6-7.2) mg/dL AST 21 (10-42) IU/L Lactate Dehydrogenase 150 (91-225) IU/L Urine Creatinine mg/dL Ur Total Protein Timed mg/dL Protein/Creatinin Ratio (<=0.2) 03/04/19 Range/Units 10:50 WBC (4.8-10.8) x10^3/uL RBC (4.20-5.40) 10^6/uL Hgb (12.0-16.0) g/dL Hct (37.0-47.0) % MCV (81.0-99.0) fL MCH (27.0-31.0) pg MCHC (32.0-36.0) g/dL RDW (12.0-15.0) % Plt Count (130-450) 10^3/uL MPV (7.9-10.8) fL Neut # (Auto) (1.5-6.6) 10^3/uL Lymph # (Auto) (1.5-3.5) 10^3/uL [place] # (Auto) (0.0-1.0) 10^3/uL Eos # (Auto) (0.0-0.7) 10^3/uL Baso # (Auto) (0.0-0.1) 10^3/uL Absolute Nucleated RBC x10^3/uL Nucleated RBC % /100WBC Uric Acid (2.6-7.2) mg/dL AST (10-42) IU/L Lactate Dehydrogenase (91-225) IU/L Urine Creatinine 80.5 mg/dL Ur Total Protein Timed 51 mg/dL Protein/Creatinin Ratio 0.6 H (<=0.2) - Current Medications Current Medications: Current Medications Generic Name Dose Route Start Last Admin Trade Name Freq PRN Reason Stop Dose Admin Acetaminophen 1,000 mg 03/03/19 17:00 03/05/19 05:00 Tylenol PO 1,000 mg Q8H [facility] Administration Docusate Sodium 100 mg 03/03/19 21:00 03/05/19 08:36 Colace 100mg Capsule PO 100 mg BID JANI Administration OXYTOCIN/DEXTROSE 5 % 30 unit in 500 mls @ 1 mls/hr 03/03/19 09:00 03/04/19 12:04 Pitocin/Dextrose 5% IV Infused TITR [facility] Titration Protocol 1 MILLIUNIT/MIN Ibuprofen 800 mg 03/04/19 14:00 03/05/19 08:36 Motrin PO 800 mg Q8HR JANI Administration Labetalol HCl 100 mg 03/02/19 22:00 03/05/19 08:36 Trandate PO 100 mg BID JANI Administration Oxycodone HCl 5 mg 03/03/19 16:28 03/05/19 06:59 Roxicodone PO 5 mg Q4HR PRN Administration PAIN Simethicone 80 mg 03/03/19 18:00 03/04/19 18:01 Mylicon PO 80 mg TIDWM [facility] Administration Sodium Chloride 10 ml 03/03/19 17:00 03/05/19 07:51 Normal Saline Flush 0.9% IVP Not Given 0100,0900,1700 [facility] - Physical Exam Comments/Other: Heart: Heart has a regular rate and rhythm without murmur Lungs: Lungs are clear to auscultation bilaterally without wheezes, rales or Rhonchi. Abdomen: The abdomen is soft, pliable and nontender. The uterus is firm and nontender 2 fingerbreadths below the umbilicus. Incision: The patient has a wound VAC on the incision.Dressing is intact.
[2019-03-05] MEDS: SIMETHICONE CHEW 80 MG TABLET PO SCH ×4 (09:10→21:16)
[2019-03-05 09:24] LABS: PROTEIN/CREATININE RATIO,URINE 0.7 (<=0.2)
--- NOTE | 2019-03-05 09:55 | PROVIDER PROGRESS NOTE ---
Subjective - General Admit Date: 03/03/19 Procedure Date: 03/03/19 Post Op Days: 2 Procedure Performed: PLTC/S - Review of Systems Wound/Incisions: positive: Dressing dry and intact General: positive: No symptoms (Pain 1-2/10) Gastrointestinal: positive: Flatus Genitourinary: positive: No symptoms. negative: Dysuria (Voiding) Objective - Patient Data Vital Signs: Vital Signs x48h Temp Pulse Resp BP Pulse Ox 03/05/19 09:06 143/92 H 03/05/19 08:19 37.0 C 81 18 152/91 H 99 03/05/19 05:06 88 16 139/72 H 98 03/05/19 03:35 36.9 C 81 17 150/80 H 97 Intake & Output: Intake and Output Totals x24h 03/03/19 03/04/19 03/05/19 23:59 23:59 23:59 Intake Total 1000 1500 Output Total 620 745 Balance 380 755 - Lab Results Lab Results: 03/05/19 05:40 03/04/19 05:15 Other Lab Results: Lab Results x24hrs 03/05/19 03/05/19 03/05/19 Range/Units 08:55 05:40 05:40 WBC (4.8-10.8) x10^3/uL RBC (4.20-5.40) 10^6/uL Hgb (12.0-16.0) g/dL Hct (37.0-47.0) % MCV (81.0-99.0) fL MCH (27.0-31.0) pg MCHC (32.0-36.0) g/dL RDW (12.0-15.0) % Plt Count (130-450) 10^3/uL MPV (7.9-10.8) fL Neut # (Auto) (1.5-6.6) 10^3/uL Lymph # (Auto) (1.5-3.5) 10^3/uL [place] # (Auto) (0.0-1.0) 10^3/uL Eos # (Auto) (0.0-0.7) 10^3/uL Baso # (Auto) (0.0-0.1) 10^3/uL Absolute Nucleated RBC x10^3/uL Nucleated RBC % /100WBC Uric Acid (2.6-7.2) mg/dL AST (10-42) IU/L ALT 15 (10-60) IU/L Lactate Dehydrogenase 150 (91-225) IU/L Urine Creatinine 26.0 mg/dL Ur Total Protein Timed 17 mg/dL Protein/Creatinin Ratio 0.7 H (<=0.2) 03/05/19 03/05/19 03/04/19 Range/Units 05:40 05:40 10:50 WBC 11.3 H (4.8-10.8) x10^3/uL RBC 3.52 L (4.20-5.40) 10^6/uL Hgb 9.5 L (12.0-16.0) g/dL Hct 29.8 L (37.0-47.0) % MCV 84.7 (81.0-99.0) fL MCH 27.0 (27.0-31.0) pg MCHC 31.9 L (32.0-36.0) g/dL RDW 15.7 H (12.0-15.0) % Plt Count 230 (130-450) 10^3/uL MPV 10.0 (7.9-10.8) fL Neut # (Auto) 7.8 H (1.5-6.6) 10^3/uL Lymph # (Auto) 2.4 (1.5-3.5) 10^3/uL [place] # (Auto) 0.6 (0.0-1.0) 10^3/uL Eos # (Auto) 0.3 (0.0-0.7) 10^3/uL Baso # (Auto) 0.1 (0.0-0.1) 10^3/uL Absolute Nucleated RBC 0.00 x10^3/uL Nucleated RBC % 0.0 /100WBC Uric Acid 5.3 (2.6-7.2) mg/dL AST 21 (10-42) IU/L ALT (10-60) IU/L Lactate Dehydrogenase (91-225) IU/L Urine Creatinine 80.5 mg/dL Ur Total Protein Timed 51 mg/dL Protein/Creatinin Ratio 0.6 H (<=0.2) - Current Medications Current Medications: Current Medications Generic Name Dose Route Start Last Admin Trade Name Freq PRN Reason Stop Dose Admin Acetaminophen 1,000 mg 03/03/19 17:00 03/05/19 05:00 Tylenol PO 1,000 mg Q8H JAIN Administration Docusate Sodium 100 mg 03/03/19 21:00 03/05/19 08:36 Colace 100mg Capsule PO 100 mg BID JANI Administration OXYTOCIN/DEXTROSE 5 % 30 unit in 500 mls @ 1 mls/hr 03/03/19 09:00 03/04/19 12:04 Pitocin/Dextrose 5% IV Infused TITR [facility] Titration Protocol 1 MILLIUNIT/MIN Ibuprofen 800 mg 03/04/19 14:00 03/05/19 08:36 Motrin PO 800 mg Q8HR JANI Administration Labetalol HCl 100 mg 03/02/19 22:00 03/05/19 08:36 Trandate PO 100 mg BID JANI Administration Oxycodone HCl 5 mg 03/03/19 16:28 03/05/19 06:59 Roxicodone PO 5 mg Q4HR PRN Administration PAIN Simethicone 80 mg 03/03/19 18:00 03/05/19 09:10 Mylicon PO 80 mg TIDWM JANI Administration Sodium Chloride 10 ml 03/03/19 17:00 03/05/19 07:51 Normal Saline Flush 0.9% IVP Not Given 0100,0900,1700 [facility] Impression/Plan - Problem List Problem List: The patient's hemoglobin is 9.5. Since she has not already had iron ordered we will start iron supplement his ferrous sulfate 325 mg p.o. twice daily.
[2019-03-05] MEDS: OXYTOCIN/DEXTROSE 5 % 30 UNIT/500 ML BAG IV SCH (10:25)
[2019-03-05] MEDS: FERROUS SULFATE 325 MG TABLET PO SCH (16:54)
[2019-03-06 05:42] LABS: CREATININE,URINE 41.1 mg/dL; PROTEIN/CREATININE RATIO,URINE 0.7 (<=0.2)
[2019-03-06] MEDS: oxyCODONE 5 MG TABLET PO PRN (05:42)
[2019-03-06] MEDS: IBUPROFEN 800 MG TABLET PO SCH ×2 (05:42→08:38)
[2019-03-06] MEDS: ACETAMINOPHEN 500 MG TABLET PO SCH ×2 (05:42→08:38)
[2019-03-06] MEDS: LABETALOL 100 MG TABLET PO SCH (08:39)
[2019-03-06] MEDS: DOCUSATE SODIUM 100 MG CAPSULE PO SCH (08:39)
[2019-03-06] MEDS: SIMETHICONE CHEW 80 MG TABLET PO SCH (08:39)
[2019-03-06] MEDS: FERROUS SULFATE 325 MG TABLET PO SCH (08:39)
--- NOTE | 2019-03-06 09:31 | PROVIDER PROGRESS NOTE ---
Subjective - General Admit Date: 03/03/19 Procedure Date: 03/03/19 Post Op Days: 3 Procedure Performed: PLTC/S - Review of Systems Wound/Incisions: positive: Dressing dry and intact General: positive: No symptoms (Pain 1-2/10) Gastrointestinal: positive: Flatus Genitourinary: positive: No symptoms. negative: Dysuria (Voiding) - Other Other Information/Narrative: The patient is doing well. She is without complaint. + BM and still passing flatus. well, ambulating well and tolerating diet well. Objective - Patient Data Vital Signs: Vital Signs x48h Temp Pulse Resp BP Pulse Ox 03/06/19 08:19 36.9 C 74 18 149/74 H 99 03/06/19 06:45 147/85 H 03/06/19 05:36 70 147/89 H 03/06/19 05:30 36.9 C 76 16 99 03/06/19 01:34 36.9 C 77 16 140/81 H 97 Intake & Output: Intake and Output Totals x24h 03/04/19 03/05/19 03/06/19 23:59 23:59 23:59 Intake Total 1500 Output Total 745 Balance 755 - Lab Results Lab Results: 03/05/19 05:40 03/04/19 05:15 Other Lab Results: Lab Results x24hrs 03/06/19 03/06/19 Range/Units 06:23 05:26 ALT 14 (10-60) IU/L Urine Creatinine 41.1 mg/dL Ur Total Protein Timed 27 mg/dL Protein/Creatinin Ratio 0.7 H (<=0.2) - Current Medications Current Medications: Current Medications Generic Name Dose Route Start Last Admin Trade Name Freq PRN Reason Stop Dose Admin Acetaminophen 1,000 mg 03/03/19 17:00 03/06/19 08:38 Tylenol PO 1,000 mg Q8H JANI Administration Docusate Sodium 100 mg 03/03/19 21:00 03/06/19 08:39 Colace 100mg Capsule PO 100 mg BID JANI Administration Ferrous Sulfate 325 mg 03/05/19 17:00 03/06/19 08:39 Feosol PO 325 mg BIDWM JANI Administration Ibuprofen 800 mg 03/04/19 14:00 03/06/19 08:38 Motrin PO 800 mg Q8HR JANI Administration Labetalol HCl 100 mg 03/02/19 22:00 03/06/19 08:39 Trandate PO 100 mg BID JANI Administration Oxycodone HCl 5 mg 03/03/19 16:28 03/06/19 05:42 Roxicodone PO 5 mg Q4HR PRN Administration PAIN Simethicone 80 mg 03/03/19 18:00 03/06/19 08:39 Mylicon PO 80 mg TIDWM JANI Administration - Physical Exam Wound/Incisions: positive: Healing well, Dressing dry and intact General Appearance: positive: No acute distress, Alert Respiratory: positive: No respiratory distress, Breath sounds nml Cardiovascular: positive: Regular rate & rhythm, No murmur Abdomen: positive: Non-tender (The uterus is firm and nontender 2 FB below the umbilicus), Nml bowel sounds, No distention Neurologic/Psychiatric: positive: Oriented x3 Impression/Plan - Problem List Problem List: Impression: Postop/ day #3 - stable Plan: Discharge to home with both written and verbal instructions. Please refer to dictated discharge summary
[2019-03-06 13:41] VITALS: BP 148/90
--- NOTE | 2019-03-06 14:20 | DISCHARGE SUMMARY ---
Physician: Tristin Ochoa DO DATE OF ADMISSION: 03/03/2019 DATE OF DISCHARGE: 03/06/2019 ADMITTING DIAGNOSES 1. Intrauterine at 37-weeks' gestation. 2. Mild preeclampsia without severe features. DISCHARGE DIAGNOSES 1. Delivery at 37-weeks' gestation. 2. Nonreassuring heart rate pattern. 3. Preeclampsia without severe features. 4. Anemia. LABORATORIES 1. Admit laboratories revealed her protein-creatinine ratio to be 3.1; at discharge, it was 0.7. 2. Admit labs revealed normal preeclamptic panel other than the elevated urine protein-creatinine ra nevaeh. This remained stable throughout her hospital course. 3. Admit CBC revealed WBCs of 13.5, RBCs of 4.15, hemoglobin 11.0, hematocrit 34.6 with 272 platelet s. 4. At discharge, WBCs were 11.3, RBCs of 3.52, hemoglobin was 9.5 with hematocrit of 29.[address] HOSPITAL COURSE: Patient was admitted to Labor and Delivery on the morning of 03/03/2019 at 37 weeks for induction of labor due to preeclampsia without severe features. She was started on misoprostol. At home, she had been on labetalol 100 mg b.i.d., and this was continued. Her blood pressures kate ined somewhat stable; however, as the day progressed, the fetus began showing signs of distress. A n onreassuring heart rate pattern was seen, and the patient was then taken to surgery for a prima ry section; one is referred to the operative note for full details. She was taken back to her room in stable condition. Her blood pressure remained somewhat stable thro ughout her hospital stay. She remained on labetalol 100 mg p.o. t.i.d. On her first post op day, her IV was discontinued. Her Cobos catheter had been discontinued. She was ambulating well and tolerating diet well. She was voiding without difficulty. On her second postoperative day, she continued to do well. Vital signs were stable. She was afebrile. The uterus was firm, 2 fingerbreadths below the umbilicus. Lochia was light. She was passing flatus. She had had a bowel movement. The wound was intact and without signs of infection. On her third postop day, her blood pressures again remained stable. Uterus was firm, 2 fingerbreadths below the umbilicus. Lochia was light. The wound VAC on the wound still looked clean and dry. No signs of infection were appreciated. The uterus was firm and nontender, 2 fingerbreadt hs below the umbilicus. The patient was without difficulty. She was asking for discha rge. It was felt that the patient was stable and could be safely discharged to home. The patient was discharged to home with both written and verbal instructions, which included such thi ngs as 1. She is to forego any lifting, tampons, douching, or intercourse. 2. She is to report any temperature greater than 100.4 or heavy vaginal bleeding or drainage from th e incision site. 3. She is to continue to increase her fluids and continue her vitamins. 4. She will continue her labetalol at 100 mg p.o. b.i.d. 5. She will continue with ferrous sulfate 325 mg b.i.d. when she goes home. 6. She will continue with Colace 100 mg p.o. b.i.d. as she needs to. a. She may use MiraLax as she needs to. 7. She is to use ibuprofen 600 mg p.o. t.i.d. p.r.n. cramping. 8. She was given a prescription for hydrocodone/acetaminophen 5/325 #20, 1 p.o. every 4 hours p.r.n. pain, no refills. This is to supplement the ibuprofen. 9. She is not to drive a car for the next 2 weeks. 10. She will leave the wound VAC on for 1 week and then take it off. She may take it off earlier if the battery runs out. 11. She is to call us if any signs of infection ensue in the incision. 12. She will be seen in the office in 48 hours for a blood pressure check and initial escobar ck. Further office appointments will be decided at that time. 13. She will call sooner if she has any other problems. TD: 03/06/2019 09:53
--- NOTE | 2019-03-06 18:21 | Labor Flowsheet ---
Labor Flowsheet Datetime Report Generated by CPN: 03/06/2019 18:20 Datetime: 03/03/2019 14:44 UTERINE ACTIVITY Monitor Mode: External Contraction Comments: no ctx traced at this time due to pt positioning and toco positioning ASSESSMENT A Monitor Mode: External US FHR Baseline Rate : 135 Variability: Moderate 6-25 bpm Decelerations: Late Patient Care Comments: PT taken off of EFM at this time to be taken by bed to OR for Cat 2 c/s. Pt spouse present, Tasha May and Dr. Mendoza present. Ave Mancuso RN and Lynn Russell RN present along with OR surgical staff. Datetime: 03/03/2019 14:30 Accelerations: 15X15 Datetime: 03/03/2019 14:28 COMMUNICATION Communication: Call/Page Placed to Provider Provider Notified (Name): Dr. Amaro Notification Reason: Other Communication Comments: Notified provider of Cat 2 c/section. Datetime: 03/03/2019 14:27 Comments: Category 2 c/s decided Datetime: 03/03/2019 14:15 Frequency (min): 4-4.5 Duration (sec): 40-50 Datetime: 03/03/2019 14:01 Medication Comments: IV fluid bolus of 500 completed Datetime: 03/03/2019 13:59 Amniotic Fluid Color: Clear Amniotic Fluid Odor: Normal Oxygen Amount (LPM): 10 Oxygen Method: Face Mask Patient Position/Activity: Hands-Knees Datetime: 03/03/2019 13:39 Actions for Decelerations: Hands and Knees Datetime: 03/03/2019 13:28 PATIENT CARE IV/Blood Work: IV Bolus Started Datetime: 03/03/2019 13:20 Monitor Interventions for UA: Pandora Adjusted Datetime: 03/03/2019 13:11 VITAL SIGNS NBP Sys/Jannet/Mean (mmHg): 139 : 97 : 107 Pulse: 90 LaborFlag: Labor Datetime: 03/03/2019 12:38 Temperature (C): 37.1 Datetime: 03/03/2019 12:35 VAGINAL EXAM Dilatation (cm): 3.0 Effacement (%): 75 Station: -1 Exam by: Tasha May Membrane Status: Ruptured Membranes Rupture Method: Artificial Amniotic Fluid Amount: Moderate Vaginal Bleeding: None Datetime: 03/03/2019 12:32 I/O Interventions: Up to BR Provider Reviewed Strip: Yes Datetime: 03/03/2019 12:30 SpO2 (%): 100 Datetime: 03/03/2019 11:45 Pattern: Normal: <= 5 Contractions in 10 Minutes Pitocin Checklist: At Least 1 Acceleration of 15 bpm x 15 Seconds in 30 Minutes or Adequate Variabi lity; No More than 1 Late Deceleration Occurred in Past 30 Minutes Datetime: 03/03/2019 11:32 MEDICATIONS Pitocin (milliunits): Discontinued Datetime: 03/03/2019 11:15 Quality: Mild Resting Tone (Palpate): Relaxed Datetime: 03/03/2019 10:05 Pain Assessment Comments: PT denies any pain with ctx Datetime: 03/03/2019 09:30 FHR Baseline Changes: No Baseline Change Datetime: 03/03/2019 08:32 Monitor Interventions for FHR: Ultrasound Adjusted Datetime: 03/03/2019 08:20 Vaginal Exam Comments: Ramírez score 8 Datetime: 03/03/2019 08:00 Category: Category I Datetime: 03/03/2019 07:55 MATERNAL ASSESSMENT Level of Consciousness: Fully Conscious DTR's/Clonus: DTRs 2+; No Clonus Headache: Denies Nausea/Vomiting: Denies RUQ Epigastric Pain: Denies Datetime: 03/03/2019 07:50 PAIN Pain Scale: 1 Pain Presence: Intermittent Pain Type: Contraction Datetime: 03/03/2019 05:30 Pain Location: Abdomen Pain Relief Measures: Comfort Measures Pain Coping: Talking Through Contractions; Breathing Through Contractions Comfort Measures: Breathing/Relaxation Datetime: 03/03/2019 05:19 Cervix, Consistency: Soft Cervix, Position: Midposition Datetime: 03/03/2019 04:39 Cervical Ripening Agents: Cytotec @ 50 Datetime: 03/03/2019 04:11 Respirations: 16 Datetime: 03/02/2019 23:21 Breath Sounds, Left: Clear and Equal Breath Sounds, Right: Clear and Equal
== END 2019-03-06 14:57 | disposition home or self-care (01) | DRG 788 ==
LOC: EDSTATUS 03-02 21:00 → FBP 03-02 21:03 → WFO 03-02 21:03 → FBP 03-02 21:04 → UNDOADMOB 03-02 21:04 → WFO 03-02 21:06 → FBP 03-02 21:06 → OBSVTOIN 03-03 08:39 → FBP 03-03 09:00 → INTOOBSV 03-03 09:00 → OBSVTOIN 03-03 09:00 → UNDOADMOB 03-03 09:00 → FBP 03-03 15:58 → UNDODISIN 03-06 14:57
PROVIDERS: ADMIT Nurse Practitioner Obstetrics & Gynecology; ATTEND Obstetrics & Gynecology
PROC: 10D00Z1 Extraction of Products of Conception, Low, Open Approach (ICD-10-PCS; principal; 2019-03-03 15:00)
DX: O14.04 Mild to moderate pre-eclampsia, complicating childbirth (principal); O76 Abnormality in fetal heart rate and rhythm complicating labor and delivery; O32.2XX0 Maternal care for transverse and oblique lie, not applicable or unspecified; O69.2XX0 Labor and delivery complicated by other cord entanglement, with compression, not applicable or unspecified; Z37.0 Single live birth; O99.02 Anemia complicating childbirth; Z3A.37 37 weeks gestation of pregnancy
CPT/HCPCS: 36415; 82565; 82570; 83615; 84156; 84450; 84460; 84550; 85025; 88307; 96360; 96361; A9270; G0378; J2274; J7120

== ENCOUNTER 2019-03-01 13:54 | Outpatient (CLI) | payer OTHER ==
[2019-03-01 14:17] VITALS: BP 142/94
--- NOTE | 2019-03-01 15:53 | PROCEDURE REPORT ---
- HPI Diagnosis/Indication for NST: Gestational Hypertension Current EDU 03/24/19 Gestation 36 Weeks and 5 Days 2 Para 1 Vital Signs Temperature 37.1 C 03/01/19 14:06 Heart Rate 87 03/01/19 14:06 Respiratory Rate 16 03/01/19 14:06 Blood Pressure 142/94 H 03/01/19 14:06 O2 Saturation 99 03/01/19 14:06 Temperature 37.1 C 03/01/19 14:06 Heart Rate 87 03/01/19 14:06 Respiratory Rate 16 03/01/19 14:06 Blood Pressure 142/94 H 03/01/19 14:06 O2 Saturation 99 03/01/19 14:06 - NST Procedure NST Procedure Start Date 03/01/19 Start Time 14:05 Stop Time 14:30 Vibroacoustic Stimulation Used No Patient States Movement Yes - Results and Plan Findings/Impression: The patient's NST is reactive. This was read on 03/01/2019. Impression: Intrauterine at 36 weeks and 5 days gestation Gestational hypertension Plan: The patient is being discharged home. She is going to come back in 48 hours for an induction of labor at 37 weeks. She will call sooner if she has problems.
== END 2019-03-01 14:45 | disposition home or self-care (01) ==
LOC: WFO 13:54 → FBP 13:57 → WFO 14:45
PROVIDERS: ATTEND Obstetrics & Gynecology
DX: O13.3 Gestational [pregnancy-induced] hypertension without significant proteinuria, third trimester (principal); Z3A.36 36 weeks gestation of pregnancy
CPT/HCPCS: 59025; 87797

== ENCOUNTER 2019-06-04 18:32 | Emergency (ER) | payer OTHER ==
--- NOTE | 2019-06-04 19:57 | ED Physician Documentation ---
PD HPI SKIN - Stated complaint Stated Complaint: FULL BODY RASH - Chief complaint Chief Complaint: Allergic Rx - History obtained from History obtained from: Patient - History of Present Illness Timing - onset: How many days ago (2) Timing - duration: Days (2) Timing - details: Gradual onset, Still present, Waxing and waning (but increasing range of the body) Location: Bodywide Quality / character: Itchy, Discolored (red blotches) Improved by: Benadryl (briefly better couple of hours) Associated symptoms: No: Fever, Myalgias, Facial swelling, Dyspnea, N/V/D Contributing factors: No: Exposed to medication (no new meds; newest is OCP started couple months ago), Exposed to food, Exposed to soap / lotion Similar symptoms before: Has not had sx before Recently seen: Not recently seen Review of Systems Constitutional: denies: Fever, Chills Nose: denies: Rhinorrhea / runny nose, Congestion Throat: denies: Sore throat Respiratory: denies: Dyspnea, Cough GI: denies: Abdominal Pain, Nausea, Vomiting, Diarrhea Skin: reports: Rash Musculoskeletal: denies: Neck pain, Back pain Neurologic: denies: Altered mental status, Headache PD PAST MEDICAL HISTORY - Past Medical History Cardiovascular: Hypertension Respiratory: None Neuro: None Endocrine/Autoimmune: None GI: None : None Musculoskeletal: None Derm: None - Past Surgical 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 - Present Medications Home Medications: Ambulatory Orders Medication Instructions Recorded Confirmed Cetirizine [ZyrTEC] 10 mg PO DAILY #15 tablet 06/04/19 Famotidine 20 mg PO DAILY #15 tablet 06/04/19 dexAMETHasone [Decadron] 4 mg PO DAILY #5 tablet 06/04/19 - Allergies Allergies/Adverse Reactions: Allergies Allergy/AdvReac Type Severity Reaction Status Date / Time sodium lauryl sulfate AdvReac Intermediate Rash Verified 03/03/19 17:20 - Social History Does the pt smoke?: No Smoking Status: Never smoker Does the pt drink ETOH?: No Does the pt have substance abuse?: No - Immunizations Immunizations are current?: Yes - POLST Patient has POLST: No PD ED PE NORMAL - Vitals Vital signs reviewed: Yes - General General: Alert and oriented X 3, No acute distress, Well developed/nourished - HEENT HEENT: EOMI, Ears normal, Pharynx benign - Neck Neck: Supple, no meningeal sign, No adenopathy - Respiratory Respiratory: No respiratory distress, Clear bilaterally - Derm Derm: Normal color, Warm and dry, Other (Diffuse blotchy nonvesicular, slightly raised red firm rash consistent with hives.) Results - Vitals Vitals: Vital Signs - 24 hr 06/04/19 06/04/19 18:45 20:22 Temperature 36.8 C 36.5 C Heart Rate 80 65 Respiratory 18 16 Rate Blood Pressure 142/89 H 136/90 H O2 Saturation 100 100 Oxygen O2 Source Room air PD MEDICAL DECISION MAKING - ED course Complexity details: considered differential (Unclear source of her highs. She has been on control for 2 months so this is a possibility. No other likely irritant by history. We will treat for hives and see if it improves. If persistent or recurrent, then may need to stop the control and also consider other dietary causes.), d/w patient Departure - Departure Disposition: Home, Self Care Clinical Impression: Hives Condition: Stable Record reviewed to determine appropriate education?: Yes Instructions: ED Allergic Reaction General Other Follow-Up: Willis Au ARNP [Primary Care Provider] - Prescriptions: Cetirizine [ZyrTEC] 10 mg PO DAILY #15 tablet dexAMETHasone [Decadron] 4 mg PO DAILY #5 tablet Famotidine 20 mg PO DAILY #15 tablet Comments: Stay well-hydrated. Avoid skin irritation and heat such as hot showers as that will bring out the hives a little bit more. However the reaction is most likely coming from inside out and so oral medications will be the main thrust of treatment. Antihistamines with Benadryl every 6 hours if needed for acute itchiness. Use long-acting antihistamine cetirizine and famotidine daily for 5 or 6 days. Also Decadron steroid daily for 5 more days. I would anticipate improvement over the next couple of days and resolution of the rash. Recheck if worsening which would include respiratory or gastrointestinal symptoms as well. If this resolves and stays away then no further investigation needed. If it is recurring in the near future once off medicines or does not completely resolve over a few days, then consider possible triggers. Initial would be to stop your control pill and continue treating as an allergy and see if it then fully resolves or stays away. If still persistent or recurrent then allergy testing may be needed to identify particular triggers. Discharge Date/Time: 06/04/19 20:22
[2019-06-04] MEDS ORDERED: DEXAMETHASONE 10 MG/ML VIAL PO STA (20:11)
[2019-06-04] MEDS ORDERED: FAMOTIDINE 20 MG TABLET PO STA (20:11)
[2019-06-04] MEDS ORDERED: CHERRY SYRUP 10 ML UDC PO ONE (20:11)
[2019-06-04] MEDS ORDERED: diphenhydrAMINE 25 MG CAPSULE PO STA (20:11)
[2019-06-04] MEDS ORDERED: CETIRIZINE 10 MG TABLET PO STA (20:11)
[2019-06-04 20:25] VITALS: BP 136/90
== END 2019-06-04 20:22 | disposition home or self-care (01) ==
LOC: ED 18:32
DX: L50.9 Urticaria, unspecified (principal); I10 Essential (primary) hypertension
CPT/HCPCS: 99282; 99284; A9270

== ENCOUNTER 2020-09-20 08:00 | Outpatient (CLI) | payer OTHER ==
[2020-09-21 19:45] LABS: BACTERIAL VAGINOSIS DNA NEGATIVE (NEGATIVE); CANDIDA GLABRATA DNA NEGATIVE (NEGATIVE); CANDIDA GROUP DNA POSITIVE (NEGATIVE); CANDIDA KRUSEI DNA NEGATIVE (NEGATIVE); TRICHOMONAS VAGINALIS DNA NEGATIVE (NEGATIVE)
== END 2020-09-20 23:59 | disposition home or self-care (01) ==
LOC: LAB.WC 08:00
PROVIDERS: ATTEND Advanced Practice Midwife
DX: N76.0 Acute vaginitis (principal)
CPT/HCPCS: 87661; 87801

== ENCOUNTER 2021-09-30 19:28 | Outpatient (CLI) | payer OTHER | END 2021-09-30 19:29 | disposition critical access hospital (66) | LOC: EMS 19:28 | DX: Z04.1 Encounter for examination and observation following transport accident (principal); R07.89 Other chest pain; M79.604 Pain in right leg | CPT/HCPCS: A0425; A0429 ==

== ENCOUNTER 2021-09-30 19:46 | Emergency (ER) | payer OTHER ==
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
[2021-09-30 22:02] VITALS: BP 132/79
== END 2021-09-30 22:00 | disposition home or self-care (01) ==
LOC: EDUNIT# → ED 19:46
DX: S29.011A Strain of muscle and tendon of front wall of thorax, initial encounter (principal); S80.11XA Contusion of right lower leg, initial encounter; V28.4XXA Motorcycle driver injured in noncollision transport accident in traffic accident, initial encounter; Y93.55 Activity, bike riding; Y92.410 Unspecified street and highway as the place of occurrence of the external cause
CPT/HCPCS: 93005; 99282; 99284

== ENCOUNTER 2022-02-18 08:01 | Outpatient (CLI) | payer SELFPAY ==
[2022-02-18 12:22] LABS: BASOPHILS % (AUTO) 0.6 %; EOSINOPHILS # (AUTO) 0.3 10^3/uL (0.0-0.7); EOSINOPHILS % (AUTO) 3.6 %; HCT - HEMATOCRIT 40.1 % (37.0-47.0); HGB - HEMOGLOBIN 13.4 g/dL (12.0-16.0); LYMPHOCYTES # (AUTO) 1.9 10^3/uL (1.5-3.5); LYMPHOCYTES % (AUTO) 26.3 %; MEAN CORPUSCULAR HEMOGLOBIN 28.3 pg (27.0-31.0); MEAN CORPUSCULAR HGB CONC 33.4 g/dL (32.0-36.0); MEAN CORPUSCULAR VOLUME 84.8 fL (81.0-99.0); MEAN PLATELET VOLUME 10.6 fL (7.9-10.8); MONOCYTES # (AUTO) 0.5 10^3/uL (0.0-1.0); MONOCYTES % (AUTO) 6.8 %; NEUTROPHILS # (AUTO) 4.5 10^3/uL (1.5-6.6); NEUTROPHILS % (AUTO) 62.4 %; PLT - PLATELET COUNT 316 10^3/uL (130-450); RED BLOOD COUNT 4.73 10^6/uL (4.20-5.40); WHITE BLOOD COUNT 7.2 x10^3/uL (4.8-10.8)
[2022-02-18 13:23] LABS: ALBUMIN 4.2 g/dL (3.2-5.5); ALBUMIN/GLOBULIN RATIO 1.3 (1.0-2.2); ALKALINE PHOSPHATASE 90 IU/L (42-121); ALT ALANINE AMINOTRANSFERASE 29 IU/L (10-60); AST ASPARTATE AMINOTRANSFERASE 22 IU/L (10-42); BILIRUBIN,TOTAL 0.6 mg/dL (0.2-1.0); BUN - BLOOD UREA NITROGEN 14 mg/dL (6-20); CALCIUM 9.3 mg/dL (8.5-10.3); CARBON DIOXIDE - CO2 24 mmol/L (21-32); CHLORIDE 107 mmol/L (101-111); CHOL/HDL RATIO 3.3 (<4.4); CHOLESTEROL 166 mg/dL; CREATININE 0.6 mg/dL (0.4-1.0); GFR - MDRD 119 (>89); GLUCOSE 99 mg/dL (70-100); HDL CHOLESTEROL 50 mg/dL; LDL CHOLESTEROL,CALCULATED 103 mg/dL; LDL/HDL RATIO 2.1 (<4.4); POTASSIUM 3.9 mmol/L (3.5-5.0); SODIUM 139 mmol/L (135-145); TOTAL PROTEIN 7.4 g/dL (6.7-8.2); TRIGLYCERIDES 63 mg/dL; VLDL CHOLESTEROL 13 mg/dL
[2022-02-18 13:59] LABS: THYROID STIMULATING HORMONE 3.57 uIU/mL (0.34-5.60)
== END 2022-02-18 08:02 | disposition home or self-care (01) ==
LOC: LAB.N 08:01
PROVIDERS: ATTEND Physician Assistant
DX: Z13.220 Encounter for screening for lipoid disorders (principal); Z13.9 Encounter for screening, unspecified; Z13.29 Encounter for screening for other suspected endocrine disorder
CPT/HCPCS: 36415; 80053; 80061; 83721; 84443; 85025